=== PATIENT | female | born 1990 | race Caucasian/White ===

== ENCOUNTER 2016-12-16 08:36 | Emergency (ER) | payer OTHER ==
[2016-12-16] MEDS ORDERED: SODIUM CHLORIDE 0.9% 1,000 ML IV STA (09:08)
--- NOTE | 2016-12-16 09:11 | ED ---
Female Urogenital HPI - General Chief complaint: Vaginal Bleeding Stated complaint: Vag Bleeding Preg LMP 10/11/16 Time Seen by Provider: 12/16/16 09:01 Source: patient, RN notes reviewed Mode of arrival: ambulatory Limitations: no limitations - History of Present Illness Initial comments: 26-year-old female who is a presents to the emergency department with a chief complaint of vaginal spotting in . Patient states that she starts develops vaginal spotting last night that was only on the toilet paper. Patient states that she last night she did not soak a pad. However she did continue to bleed. Patient states she woke up this morning continued and so she became concerned. Patient states that she called her ASSISTANT STORE DIRECTOR and he sent her here. Patient states she has not had an ultrasound yet in this . Patient denies any pain or any nausea or vomiting. Patient denies any changes in bowel or bladder habits. Patient states that she was concerned due to the bleeding. Patient states that she is not currently having any other symptoms at this time. Patient denies any recent fever, chills, shortness of breath, chest pain, back pain, abdominal pain, nausea vomiting, numbness or tingling, dysuria or hematuria, constipation or diarrhea, headaches or visual changes, or any other current symptoms. - Related Data Home Medications Medication Instructions Recorded Confirmed Pnv with Ca,No.72/Iron/FA [Pnv 1 tab PO HS 12/16/16 12/16/16 Plus Multivit Tab] Allergies Allergy/AdvReac Type Severity Reaction Status Date / Time No Known Allergies Allergy Verified 12/16/16 09:39 Review of Systems ROS Statement: Those systems with pertinent positive or pertinent negative responses have been documented in the HPI. ROS Other: All systems not noted in ROS Statement are negative. Past Medical History Past Medical History: Asthma History of Any Multi-Drug Resistant Organisms: None Reported Past Surgical History: Adenoidectomy, Appendectomy, Cholecystectomy, Ear Surgery , Tonsillectomy Additional Past Surgical History / Comment(s): ear tubes Past Psychological History: No Psychological Hx Reported Smoking Status: Never smoker Past Alcohol Use History: Rare Past Drug Use History: None Reported General Exam - General Exam Comments Initial Comments: General: The patient is awake and alert, in no distress, and does not appear acutely ill. Eye: Pupils are equal, round and reactive to light, extra-ocular movements are intact; there is normal conjunctiva bilaterally. No signs of icterus. Ears, nose, mouth and throat: There are moist mucous membranes. Neck: The neck is supple, there is no tenderness. Cardiovascular: There is a regular rate and rhythm. No murmur, rub or gallop is appreciated. Respiratory: Lungs are clear to auscultation, respirations are non-labored, breath sounds are equal. No wheezes, stridor, rales, or rhonchi. Gastrointestinal: Soft, non-distended, non-tender abdomen without masses or organomegaly noted. There is no rebound or guarding present. No CVA tenderness. Bowel sounds are unremarkable. Back: There is no tenderness to palpation in the midline. There is no obvious deformity. No rashes noted. Musculoskeletal: Normal ROM, no tenderness, There is no pedal edema. There is no calf tenderness or swelling. Sensation intact. Pulses equal bilaterally 2+. Neurological: CN II-XII intact, There are no obvious motor or sensory deficits. Coordination appears grossly intact. Speech is normal. Skin: Skin is warm and dry and no rashes or lesions are noted. Psychiatric: Cooperative, appropriate mood & affect, normal judgment. Limitations: no limitations External exam: Present: normal external exam Speculum exam: Present: vaginal bleeding (minimal) By manual exam: Present: normal by manual exam Course Vital Signs 12/16/16 08:53 Temperature 98.4 F Pulse Rate 92 Respiratory 20 Rate Blood Pressure 115/55 O2 Sat by Pulse 99 Oximetry Medical Decision Making - Medical Decision Making 26-year-old female presents emergency Department with a chief complaint of vaginal bleeding in . This time patient's ultrasound does show suspicion for demise. This time patient was informed of this. We discussed superglue her prescription for repeat hCG and to follow-up with the OB /RAIL EXPRESS CLERK. Discussed return parameters for the patient. Patient stated above. She will be discharged home at this time. - Lab Data Result diagrams: 12/16/16 09:10 12/16/16 09:10 Lab Results 12/16/16 12/16/16 12/16/16 Range/Units 09:10 09:10 09:10 WBC 9.7 (3.8-10.6) k/uL RBC 4.56 (3.80-5.40) m/uL Hgb 14.7 (11.4-16.0) gm/dL Hct 44.0 (34.0-46.0) % MCV 96.7 (80.0-100.0) fL MCH 32.3 (25.0-35.0) pg MCHC 33.4 (31.0-37.0) g/dL RDW 12.5 (11.5-15.5) % Plt Count 209 (150-450) k/uL Neutrophils % 81 % Lymphocytes % 10 % Monocytes % 5 % Eosinophils % 2 % Basophils % 1 % Neutrophils # 7.8 H (1.3-7.7) k/uL Lymphocytes # 0.9 L (1.0-4.8) k/uL Monocytes # 0.5 (0-1.0) k/uL Eosinophils # 0.2 (0-0.7) k/uL Basophils # 0.1 (0-0.2) k/uL Sodium 146 H (137-145) mmol/L Potassium 3.9 (3.5-5.1) mmol/L Chloride 109 H (98-107) mmol/L Carbon Dioxide 25 (22-30) mmol/L Anion Gap 12 mmol/L BUN 5 L (7-17) mg/dL Creatinine 0.62 (0.52-1.04) mg/dL Est GFR (MDRD) Af Amer >60 (>60 ml/min/1.73 sqM) Est GFR (MDRD) Non-Af >60 (>60 ml/min/1.73 sqM) Glucose 98 (74-99) mg/dL Calcium 9.7 (8.4-10.2) mg/dL Total Bilirubin 0.7 (0.2-1.3) mg/dL AST 22 (14-36) U/L ALT 36 (9-52) U/L Alkaline Phosphatase 87 (38-126) U/L Total Protein 8.0 (6.3-8.2) g/dL Albumin 4.9 (3.5-5.0) g/dL HCG, Quant 2961.9 mIU/mL Urine Color Urine Appearance (Clear) Urine pH (5.0-8.0) Ur Specific [place] (1.001-1.035) Urine Protein (Negative) Urine Glucose (UA) (Negative) Urine Ketones (Negative) Urine Blood (Negative) Urine Nitrate (Negative) Urine Bilirubin (Negative) Urine Urobilinogen (<2.0) mg/dL Ur Leukocyte Esterase (Negative) Amorphous Sediment (None) /hpf Blood Type O Positive Blood Type Recheck No 12/16/16 Range/Units 09:10 WBC (3.8-10.6) k/uL RBC (3.80-5.40) m/uL Hgb (11.4-16.0) gm/dL Hct (34.0-46.0) % MCV (80.0-100.0) fL MCH (25.0-35.0) pg MCHC (31.0-37.0) g/dL RDW (11.5-15.5) % Plt Count (150-450) k/uL Neutrophils % % Lymphocytes % % Monocytes % % Eosinophils % % Basophils % % Neutrophils # (1.3-7.7) k/uL Lymphocytes # (1.0-4.8) k/uL Monocytes # (0-1.0) k/uL Eosinophils # (0-0.7) k/uL Basophils # (0-0.2) k/uL Sodium (137-145) mmol/L Potassium (3.5-5.1) mmol/L Chloride (98-107) mmol/L Carbon Dioxide (22-30) mmol/L Anion Gap mmol/L BUN (7-17) mg/dL Creatinine (0.52-1.04) mg/dL Est GFR (MDRD) Af Amer (>60 ml/min/1.73 sqM) Est GFR (MDRD) Non-Af (>60 ml/min/1.73 sqM) Glucose (74-99) mg/dL Calcium (8.4-10.2) mg/dL Total Bilirubin (0.2-1.3) mg/dL AST (14-36) U/L ALT (9-52) U/L Alkaline Phosphatase (38-126) U/L Total Protein (6.3-8.2) g/dL Albumin (3.5-5.0) g/dL HCG, Quant mIU/mL Urine Color Yellow Urine Appearance Turbid H (Clear) Urine pH 7.5 (5.0-8.0) Ur Specific [place] 1.014 (1.001-1.035) Urine Protein Trace H (Negative) Urine Glucose (UA) Negative (Negative) Urine Ketones Negative (Negative) Urine Blood Moderate H (Negative) Urine Nitrate Negative (Negative) Urine Bilirubin Negative (Negative) Urine Urobilinogen <2.0 (<2.0) mg/dL Ur Leukocyte Esterase Negative (Negative) Amorphous Sediment Moderate H (None) /hpf Blood Type Blood Type Recheck - Radiology Data Radiology results: report reviewed, image reviewed Disposition Clinical Impression: demise, Threatened Disposition: HOME SELF-CARE Condition: Stable Instructions: Threatened Miscarriage (ED) Additional Instructions: Please use medication as discussed. Please follow up with family doctor if symptoms have not improved over the next two days. Please return to the emergency room if your symptoms increase or worsen or for any other concerns. Referrals: Reddy Nuno MD [STAFF PHYSICIAN] - 1-2 days Time of Disposition: 11:10
[2016-12-16 09:32] LABS: Basophils # (A) 0.1 k/uL (0-0.2); Basophils % (A) 1 %; CH 32.5; CHCM 33.8; Eosinophils # (A) 0.2 k/uL (0-0.7); Eosinophils % (A) 2 %; HDW 2.36; HGB 14.7 gm/dL (11.4-16.0); Luc # (Auto) 0.11; Luc % (Auto) 1; Lymphocytes # (A) 0.9 k/uL (1.0-4.8); Lymphocytes % (A) 10 %; MCH 32.3 pg (25.0-35.0); MCHC 33.4 g/dL (31.0-37.0); MCV 96.7 fL (80.0-100.0); Mean Platelet Volume 7.6; Monocytes # (A) 0.5 k/uL (0-1.0); Monocytes % (A) 5 %; Neutrophils # (A) 7.8 k/uL (1.3-7.7); Neutrophils % (A) 81 %; RBC 4.56 m/uL (3.80-5.40); RDW 12.5 % (11.5-15.5); WBC 9.7 k/uL (3.8-10.6); WBC (Perox) 9.79
[2016-12-16 09:37] LABS: Amorphous Sediment,Urine Moderate /hpf; Appearance,Urine Turbid (Clear); Bilirubin,Urine Negative (Negative); Glucose,Urine (UA) Negative (Negative); Ketones,Urine Negative (Negative); Leukocyte Esterase,Urine Negative (Negative); Nitrite,Urine Negative (Negative); PH, Urine 7.5 (5.0-8.0); Particle Count 33518; Protein,Urine Trace (Negative); Specific Gravity,Urine 1.014 (1.001-1.035); UA Billing (MACRO vs. MICRO) MICRO; Urobilinogen,Urine <2.0 mg/dL (<2.0)
[2016-12-16 09:46] LABS: ALT 36 U/L (9-52); AST 22 U/L (14-36); Alkaline Phosphatase 87 U/L (38-126); Anion Gap 12 mmol/L; Blood Urea Nitrogen 5 mg/dL (7-17); Calcium 9.7 mg/dL (8.4-10.2); Carbon Dioxide 25 mmol/L (22-30); Chloride 109 mmol/L (98-107); Glucose 98 mg/dL (74-99); Non-African American GFR(MDRD) >60 (>60 ml/min/1.73 sqM); Potassium 3.9 mmol/L (3.5-5.1); Sodium 146 mmol/L (137-145); Total Bilirubin 0.7 mg/dL (0.2-1.3)
[2016-12-16 10:01] LABS: HCG,Quantitative Serum 2961.9 mIU/mL
--- NOTE | 2016-12-16 11:05 | US ---
EXAMINATION TYPE: US OB <= 14 wk fetus DATE OF EXAM: 12/16/2016 10:24 AM COMPARISON: No previous CLINICAL HISTORY: Pain. Spotting x 2 days, 2, para 1 EXAM PERFORMED: Transvaginal (TV) and Transabdominal (TA) endovaginal scanning performed for better evaluation of the fetus EXAM MEASUREMENTS: GESTATIONAL AGE / DATING Physician Established: Not established yet Dates by LMP: (9 weeks/3 days) EDC: 07/18/2017 Dates by First Scan: No previous Dates by Current Scan for: (7 weeks/0 days) EDC: 08/04/2017 MATERNAL ANATOMY Uterus: 7.1 X 4.0 x 4.7cm Right Ovary: 2.4 x 1.5 x 1.7cm Left Ovary: 1.5 x 0.9 x 1.3cm Post CDS / Adnexa: small amount of free fluid in posterior cul-de-sac Presence of free fluid: yes Presence of corpus luteal cyst: not seen at this time Presence of subchorionic bleed: no GESTATION / SURVEY CRL: 1.0cm (7 weeks/0 days) Yolk Sac (normal less than 6mm): not seen at this time Heart Rate: no heart tones seen at this time IUP: Demise Date of LMP: 10/11/2016 Beta HcG (if available): 2961.9 TECHNOLOGIST IMPRESSION: no heart tones seen at this time, pole measuring 7 weeks 0 days with an estimated delivery date of 08/04/2017 Lack of heart tones, no color flow noted at the level of the fetus on color Doppler. IMPRESSION: Findings suspicious for demise. Follow-up as indicated.
[2016-12-16 11:21] VITALS: BP 117/84; PULSE 103; RESP 16; TEMP 98.2
[2016-12-17 11:46] LABS: Chlamydia/GC Source Vaginal
== END 2016-12-16 11:26 | disposition home or self-care (01) ==
LOC: EC 08:36
DX: O02.1 Missed abortion (principal); Z3A.01 Less than 8 weeks gestation of pregnancy
CPT/HCPCS: 36415; 76801; 76817; 80053; 81001; 84702; 85025; 86900; 86901; 87070; 87086; 87205; 87491; 87591; 87808; 96360; 96361; 99284

== ENCOUNTER → 2016-12-19 | Outpatient (CLI) | payer OTHER | END | disposition home or self-care (01) | LOC: LABWHC1 16:45 | PROVIDERS: ATTEND Obstetrics & Gynecology | DX: O03.9 Complete or unspecified spontaneous abortion without complication (principal); Z3A.00 Weeks of gestation of pregnancy not specified | CPT/HCPCS: 36415; 84702 ==

== ENCOUNTER → 2017-02-04 | Outpatient (CLI) | payer OTHER | LOC: LABWHC1 16:10 | PROVIDERS: ATTEND Obstetrics & Gynecology | DX: Z34.90 Encounter for supervision of normal pregnancy, unspecified, unspecified trimester (principal); Z3A.00 Weeks of gestation of pregnancy not specified | CPT/HCPCS: 36415; 84702 ==

== ENCOUNTER → 2017-03-03 | Outpatient (CLI) | payer OTHER ==
[2017-03-03 11:00] LABS: CHCM 34.3; HCT 38.3 % (34.0-46.0); MCH 32.8 pg (25.0-35.0); MCV 96.6 fL (80.0-100.0); Mean Platelet Volume 6.6; RBC 3.97 m/uL (3.80-5.40); WBC 7.8 k/uL (3.8-10.6)
[2017-03-03 11:24] LABS: Glucose 111 mg/dL (74-99); Non-African American GFR(MDRD) >60 (>60 ml/min/1.73 sqM)
[2017-03-03 11:51] LABS: Hepatitis B Surface Ag Index 0.06
[2017-03-04 07:23] LABS: HIV-1/HIV-2 Ab Screen NONREAC (NON REAC)
== END | disposition home or self-care (01) ==
LOC: LABWHC1 10:28
PROVIDERS: ATTEND Obstetrics & Gynecology
DX: Z34.90 Encounter for supervision of normal pregnancy, unspecified, unspecified trimester (principal)
CPT/HCPCS: 36415; 82565; 82947; 85027; 86762; 86780; 86850; 86900; 86901; 87340; 87389

== ENCOUNTER → 2017-05-05 | Outpatient (CLI) | payer OTHER ==
--- NOTE | 2017-05-05 11:14 | USB ---
Reason for exam: clinical finding. History: Family history of breast cancer in mother at age 25 and breast cancer in grandmother. Indicated problem(s): palpable abnormality in both breasts. Physical Findings: Nurse Summary: BB sized nodules 10 o'clock right breast and at 1 o'clock left breast (nurse jl). US Breast BILAT Right breast ultrasound includes all four quadrants, the retroareolar region and axilla. Finding demonstrate no cystic or solid lesion seen. Left breast ultrasound includes all four quadrants, the retroareolar region and axilla. Finding demonstrate no cystic or solid lesion seen. Dense tissue at BB's 10 o'clock in the right breast, and 1 o'clock in the left breast. Dense thickened trabecular tissues. These results were verbally communicated with the patient and result sheet given to the patient on 05/05/17. ASSESSMENT: Benign, BI-RAD 2 RECOMMENDATION: 1. Generally, screening can begin 10 years prior to the age that a first degree relative had breast cancer. 2. Manage patient on a clinical basis with regard to suspicious palpable areas. 3. Consider BRCA testing given patients family history. 4. Alternating screening MRI may be indicated if lifetime risk is greater than 20%. MTDD
== END | disposition home or self-care (01) ==
LOC: RADUSWWP 09:41
PROVIDERS: ATTEND Obstetrics & Gynecology
DX: N63 Unspecified lump in breast (principal)

== ENCOUNTER → 2017-06-13 | Outpatient (CLI) | payer OTHER ==
--- NOTE | 2017-06-13 10:51 | US ---
EXAMINATION TYPE: US venous doppler duplex LE RT DATE OF EXAM: 06/13/2017 10:38 AM COMPARISON: NONE CLINICAL HISTORY: I82.409 DVT. Patient with right leg cramping, no swelling, no h/o dvt SIDE PERFORMED: Right TECHNIQUE: The lower extremity deep venous system is examined utilizing real time linear array sonog kassi with graded compression, doppler sonography and color-flow sonography. VESSELS IMAGED: External Iliac Vein (EIV) Common Femoral Vein Deep Femoral Vein Greater Saphenous Vein * Femoral Vein = duplicate vein seen at mid level Popliteal Vein Small Saphenous Vein * Proximal Calf Veins (* superficial vessels) *tech impression relayed to office @1043 Right Leg: Appears negative for DVT Grayscale, color doppler, spectral doppler imaging performed of the deep veins of the lower extremiti es. There is normal flow, compressibility, vascular waveforms. IMPRESSION: No sonographic evidence of deep venous thrombosis within the right lower extremity.
== END | disposition home or self-care (01) ==
LOC: RADUSWWP 10:11
PROVIDERS: ATTEND Obstetrics & Gynecology
DX: I82.409 Acute embolism and thrombosis of unspecified deep veins of unspecified lower extremity (principal)

== ENCOUNTER → 2017-07-10 | Outpatient (CLI) | payer OTHER ==
[2017-07-10 14:49] LABS: CH 33.9; CHCM 35.1; HCT 31.6 % (34.0-46.0); HDW 2.74; MCH 33.8 pg (25.0-35.0); MCHC 34.8 g/dL (31.0-37.0); MCV 97.2 fL (80.0-100.0); Mean Platelet Volume 7.4; RBC 3.25 m/uL (3.80-5.40); RDW 13.4 % (11.5-15.5); WBC 12.3 k/uL (3.8-10.6)
== END | disposition home or self-care (01) ==
LOC: LABWHC1 13:22
PROVIDERS: ATTEND Obstetrics & Gynecology
DX: Z34.82 Encounter for supervision of other normal pregnancy, second trimester (principal)
CPT/HCPCS: 36415; 82950; 85027

== ENCOUNTER → 2017-07-17 | Outpatient (CLI) | payer OTHER ==
[2017-07-17 13:11] LABS: Glucose 3 Hour, Gest 84 mg/dL
== END | disposition home or self-care (01) ==
LOC: LABWHC1 08:35
PROVIDERS: ATTEND Obstetrics & Gynecology
DX: O99.810 Abnormal glucose complicating pregnancy (principal); Z3A.00 Weeks of gestation of pregnancy not specified
CPT/HCPCS: 36415; 82951; 82952

== ENCOUNTER 2017-08-31 20:38 | Outpatient (CLI) | payer OTHER ==
[2017-08-31 21:14] LABS: Appearance,Urine Cloudy (Clear); Bilirubin,Urine Negative (Negative); Glucose,Urine (UA) Negative (Negative); Ketones,Urine Negative (Negative); Leukocyte Esterase,Urine Moderate (Negative); Mucus,Urine Rare /hpf; Nitrite,Urine Negative (Negative); Particle Count 3839; Protein,Urine Negative (Negative); RBC,Urine 1 /hpf (0-5); Specific Gravity,Urine 1.009 (1.001-1.035); Squamous Epithelial Cell,Urine 4 /hpf (0-4); UA Billing (MACRO vs. MICRO) MICRO; Urobilinogen,Urine <2.0 mg/dL (<2.0); WBC,Urine 12 /hpf (0-5)
[2017-08-31 21:52] VITALS: BP 139/74; PULSE 85; RESP 16; TEMP 98.4
--- NOTE | 2017-08-31 22:50 | P.MSEPDOC ---
Presenting Problems - Arrival Data Date of Arrival on Unit: 08/31/17 Time of Arrival on Unit: 20:38 Mode of Transport: Wheelchair - Complaint OB-Reason for Admission/Chief Complaint: Observation/Evaluation Comment: pt c/o contractions and not feeling well the day prior Medical History - Information : 3 Para: 1 Term: 1 : 0 Abortions: Spontaneous or Elective: 1 Number of Living Children: 1 - Gestational Age Gestational Age by RIN (wks/days): 36 Weeks and 5 Days Review of Systems - Review of Systems Constitutional: No problems Breast: No problems ENT: No problems Cardiovascular: No problems Respiratory: No problems Gastrointestinal: No problems Genitourinary: No problems Musculoskeletal: No problems Neurological: No problems Skin: No problems Vital Signs - Temperature Temperature: 98.4 F Temperature Source: Temporal Artery Scan - Pulse Right Pulse Rate: 85 Pulse Assessment Method: Automatic Cuff - Respirations Respiratory Rate: 16 Oxygen Delivery Method: Room Air O2 Sat by Pulse Oximetry: 99 - Blood Pressure Right Arm Blood Pressure: 139/74 Blood Pressure Mean: 95 Blood Pressure Source: Automatic Cuff Medical Screen Scoring (Pre) - Cervical Exam Dilation: 1-3 cm = 1 Effacement: More than 50% = 2 Membranes: Intact - Uterine Contractions Frequency: > or = 36 weeks =2 Duration: > 40 seconds = 2 - Maternal Vital Signs Maternal Temperature: N/A Maternal Blood Pressure: N/A Signs of Preeclampsia: N/A Maternal Respirations: N/A - Pain Assessment Pain Location and Character: Back, Abdomen Pain Scale Used: Numeric (1 - 10) Pain Intensity: 4 Pain Management Goal: 5 Pain Description: *Acute, Cramping Pain Frequency: Intermittent Pain Behavior: None Exhibited Pain Aggravating Factors: Contractions - Maternal Trauma Maternal Trauma: N/A - Assessment Baseline FHR: 145 Heart Rate - NICHD Category: Category I (Normal) = 0 NST: Reactive - Total Score Total Score (Pre): 7 - Level of Risk Level of Risk: Medium (6-9) Physician Notification (Pre) - Physician Notified Physician Notified Date: 08/31/17 Physician Notified Time: 21:00 Physician/Practitioner Notifed:: Dr Joe New Order Received: Yes - Notification Comment Comment: send u/a and recheck cervix in an hour Physician Notification (Post) - Physician Notified Physician Notified Date: 08/31/17 Physician Notified Time: 21:49 Physician/Practitioner Notified:: Dr Joe New Order Received: Yes - Notification Comment Comment: d/c pt home Disposition - Disposition OB Disposition: Discharge to home Discharge Date: 08/31/17 Discharge Time: 22:00 I agree with the RN Medical Screening Exam: Yes Risk & Benefit of care provided described in d/c instruction: Yes Diagnosis: FALSE LABOR BEFORE 37 COMPLETED WEEKS OF GEST, THIRD TRI
== END 2017-08-31 22:00 | disposition home or self-care (01) ==
LOC: FBPOP 20:38
PROVIDERS: ATTEND Obstetrics & Gynecology
DX: O47.03 False labor before 37 completed weeks of gestation, third trimester (principal); Z3A.36 36 weeks gestation of pregnancy
CPT/HCPCS: 59025; 81001; G0463; 99213

== ENCOUNTER 2017-09-06 00:28 | Inpatient (IN) | payer OTHER ==
[2017-09-06] MEDS ORDERED: LACTATED RINGERS 1,000 ML IV ONE (00:57)
[2017-09-06] MEDS ORDERED: ceFAZolin IN SWFI 2 GM/20 ML SYRINGE IVP ONE (00:57)
[2017-09-06] MEDS ORDERED: CITRIC ACID-SODIUM CITRATE 15 ML CUP PO ONE (00:57)
[2017-09-06 01:11] VITALS: BMI 26.2
[2017-09-06 01:11] LABS: Basophils # (A) 0.1 k/uL (0-0.2); Basophils % (A) 0 %; CH 31.5; CHCM 33.7; Eosinophils # (A) 0.2 k/uL (0-0.7); Eosinophils % (A) 1 %; HDW 2.99; HGB 11.7 gm/dL (11.4-16.0); Luc # (Auto) 0.37; Luc % (Auto) 2; Lymphocytes # (A) 2.3 k/uL (1.0-4.8); Lymphocytes % (A) 14 %; MCH 31.5 pg (25.0-35.0); MCHC 33.5 g/dL (31.0-37.0); MCV 94.1 fL (80.0-100.0); Mean Platelet Volume 7.8; Monocytes # (A) 1.1 k/uL (0-1.0); Monocytes % (A) 6 %; Neutrophils % (A) 76 %; RBC 3.72 m/uL (3.80-5.40); RDW 13.8 % (11.5-15.5); WBC (Perox) 17.77
[2017-09-06] MEDS ORDERED: PHENYLEPHRINE-0.9% NACL SYG 1 MG/10 ML SYRINGE ONE (01:46)
[2017-09-06] MEDS ORDERED: ONDANSETRON 4 MG/2 ML VIAL ONE (01:46)
[2017-09-06] MEDS ORDERED: MORPHINE SULFATE (PF) 0.3 MG/0.3 ML SYR ONE (01:46)
[2017-09-06] MEDS ORDERED: NALBUPHINE 10 MG/ML AMPUL ONE (01:46)
[2017-09-06] MEDS ORDERED: KETOROLAC 30 MG/ML 1 ML VIAL ONE (01:46)
[2017-09-06] MEDS ORDERED: OXYTOCIN 10 UNIT/ML 1 ML VIAL ONE (01:46)
[2017-09-06] MEDS ORDERED: NALOXONE 0.4 MG/ML 1 ML VIAL IV PRN ×2 (02:23→02:45)
[2017-09-06] MEDS ORDERED: ONDANSETRON 4 MG/2 ML VIAL IVP PRN ×2 (02:23→02:45)
[2017-09-06] MEDS ORDERED: diphenhydrAMINE 50 MG/ML 1 ML VIAL IVP PRN (02:23)
[2017-09-06] MEDS ORDERED: MORPHINE SULFATE 10 MG/ML SYRINGE IVP PRN (02:23)
[2017-09-06] MEDS ORDERED: SIMETHICONE 80 MG CHEWABLE PO PRN (02:45)
[2017-09-06] MEDS ORDERED: Acetaminophen-Codeine 300-30mg TAB PO PRN (02:45)
[2017-09-06] MEDS ORDERED: diphenhydrAMINE 25 MG CAP PO PRN (02:45)
[2017-09-06] MEDS ORDERED: ACETAMINOPHEN TAB 325 MG TAB PO PRN (02:45)
[2017-09-06] MEDS ORDERED: ZOLPIDEM 5 MG TAB PO PRN (02:45)
[2017-09-06] MEDS ORDERED: METOCLOPRAMIDE 5 MG/ML 2 ML VIAL IVP PRN (02:45)
--- NOTE | 2017-09-06 02:53 | P.HPOB ---
History of Present Illness H&P Date: 09/06/17 Chief Complaint: leaking of fluid, previous this patient is a pleasant 27-year-old 3 para 1 female estimated date of confinement 09/23/2017 estimated gestational age 37-4/7 weeks who presents to labor and delivery with complaints of gush of fluid about quarter to midnight. Patient's care is per Dr. Cruz. patient has a history of her first baby having Down syndrome. Genetic testing via maternity T 21 was done which was normal as well as a level III ultrasound. Patient had a previous section for her first baby secondary to breech and has requested repeat. care appears to be otherwise uncomplicated. Review of Systems Constitutional: Denies chills, Denies fever Ears, nose, mouth and throat: Denies headache, Denies sore throat Cardiovascular: Denies chest pain, Denies shortness of breath Respiratory: Denies cough Gastrointestinal: Reports heartburn Genitourinary: Reports Menstruation: Reports amenorrhea Past Medical History Past Medical History: Asthma History of Any Multi-Drug Resistant Organisms: None Reported Past Surgical History: Adenoidectomy, Appendectomy, Cholecystectomy, Ear Surgery , Tonsillectomy Additional Past Surgical History / Comment(s): ear tubes Past Anesthesia/Blood Transfusion Reactions: No Reported Reaction Past Psychological History: No Psychological Hx Reported Smoking Status: Never smoker Past Alcohol Use History: None Reported, Rare Past Drug Use History: None Reported - Past Family History Mother Family Medical History: No Reported History Medications and Allergies Home Medications Medication Instructions Recorded Confirmed Type Pnv,Calcium 72/Iron/Folic Acid 1 tab PO HS 12/16/16 09/06/17 History [Pnv Plus Multivit Tab] Allergies Allergy/AdvReac Type Severity Reaction Status Date / Time No Known Allergies Allergy Verified 09/06/17 00:49 Exam - Vital Signs Vital signs: Vital Signs Temp Pulse Resp BP 09/06/17 00:50 99.1 F 94 15 130/60 Intake and Output 09/05/17 09/05/17 09/06/17 14:59 22:59 06:59 Other: Weight 63.049 kg Patient Weight 09/06/17 06:59 Weight 63.049 kg - OBG Physical Exam Abdomen: bowel sounds normal, no diffuse tenderness, no bruit present, no guarding noted, no hepatomegaly, no splenomegaly, no mass Vulva: both: normal Vagina: normal moisture, no discharge Cervix: vaginal exam shows gross rupture membranes 2-3 cm dilated. Uterus: enlarged Results blood work shows she is oh positive, rubella immune, hepatitis B negative, RPR nonreactive, HIV negative. Group B strep was negative. Result Diagrams: 09/06/17 01:05 Abnormal Lab Results - Last 24 Hours (Table) 09/06/17 Range/Units 01:05 WBC 17.0 H (3.8-10.6) k/uL RBC 3.72 L (3.80-5.40) m/uL Neutrophils # 13.0 H (1.3-7.7) k/uL Monocytes # 1.1 H (0-1.0) k/uL Assessment and Plan (1) Third trimester Current Visit: Yes Status: Acute Code(s): Z34.93 - ENCNTR FOR SUPRVSN OF NORMAL PREG, UNSP, THIRD TRIMESTER SNOMED Code(s): 83719600 (2) Spontaneous rupture of membranes Narrative/Plan: This is a pleasant 27-year-old 3 para 1 female 37-4/7 weeks gestation with spontaneous rupture membranes and previous section. Plan is repeat section. Patient understands this surgery and risks including risks of infection, bleeding, possible injury bowel, bladder, vessels, and/or other organs. All the patient's questions are answered and a written consent is obtained. Current Visit: Yes Status: Acute Code(s): NPM8461 - SNOMED Code(s): 589338558 (3) Previous delivery affecting Current Visit: Yes Status: Acute Code(s): O34.219 - MATERNAL CARE FOR UNSP TYPE SCAR FROM PREVIOUS DEL SNOMED Code(s): 906925494
--- NOTE | 2017-09-06 03:00 | P.OP ---
Date of Procedure: 09/06/17 Preoperative Diagnosis: #1:37-4/7 weeks . #2: Spontaneous rupture membranes. #3: Previous section desires repeat Postoperative Diagnosis: same Procedure(s) Performed: Repeat low transverse section. Anesthesia: spinal Surgeon: Reddy Nuno Grain Processor #1: Alejandra Rosa Estimated Blood Loss (ml): 600 Pathology: other (placenta) Condition: stable Disposition: floor Indications for Procedure: Please see dictated H&P for intimate details of this patient's admission. In brief summary this is a pleasant 27-year-old 3 para 1 female 37-4/7 weeks gestation presented with spontaneous rupture membranes and previous section. Patient has requested repeat section. She does understand the surgery and risks including risks of infection, bleeding, possible injury bowel, bladder, vessels, and other organs. She understands risks DVT and pulmonary embolism. All the patient's questions are answered and a written consent is obtained. Operative Findings: This was a vigorous viable male infant Apgars were 8 and 9 delivery time was 0210 hours. Nuchal cord 1. Description of Procedure: This patient is taken to the operating room where she sat up and spinal anesthetic is administered without incident. Mcleod catheter had previously been placed to straight drain. With an adequate level of anesthesia, patient has abdominal prep and drape. Scalpels and taken the previous Pfannenstiel skin incision is incised. A second scalpel is taken down the fascia and the fascia scored with the scalpel. Fascial incision extended bilaterally using the Ross scissors. Fascia is then taken sharply off the rectus muscles. Rectus muscles are the peritoneum identified and entered sharply. Peritoneal incision extended superior and inferior without difficulty. Bladder blade is then placed. Bladder peritoneum was taken sharply off the lower uterine segment. Scalpels and taken a low transverse uterine incision is then made. Using a hemostat I into the uterine cavity is loss of clear fluid. This incision is then extended bluntly. 's head is guided through the incision and with fundal pressure the head is delivered. Mouth and nares are bulb suctioned. There is a nuchal cord which is reduced. We then have deliver the anterior posterior shoulder and rest this 's body. This is a vigorous viable male and Apgars are 8 and 9 delivery time is 0210 hours. After delivery of the infant the umbilical cord is doubly clamped and cut and appears to be trivascular. Placenta is manually extracted intact. Uterus is externalized and the uterine incision demarcated with Mejía clamps and closed using 0 Vicryl running fashion in 2 layers. Bladder peritoneum was then reapproximated using a 3-0 Vicryl. Excess fluid is removed from the abdomen and pelvis. Uterus tubes and ovaries appear normal for term gestation. Uterus placed back into the abdomen. Parietal peritoneum was then closed using 0 Vicryl running fashion. Fascial incision then closed using 0 PDS. Skin is then reapproximated using aung. Excellent hemostasis is noted. There are no complications. Counts are correct 3.
[2017-09-06] MEDS: diphenhydrAMINE 50 MG/ML 1 ML VIAL IVP PRN ×2 (08:03→15:23)
[2017-09-06] MEDS: KETOROLAC 30 MG/ML 1 ML VIAL IVP PRN ×3 (08:04→23:55)
[2017-09-06] MEDS: LACTATED RINGERS 1,000 ML IV SCH ×3 (09:02→19:18)
[2017-09-06] MEDS: SENNOSIDES-DOCUSATE SODIUM 1 EACH TAB PO SCH ×2 (09:03→20:35)
[2017-09-06] MEDS: Acetaminophen-Codeine 300-30mg TAB PO PRN (20:00)
[2017-09-07] MEDS: LACTATED RINGERS 1,000 ML IV SCH (04:49)
--- NOTE | 2017-09-07 06:52 | P.PN ---
Progress Note - Text Progress Note Date: 09/07/17 Ms. Madsen is a 27-year-old female postop day #1 status post with spinal anesthesia and intrathecal Duramorph. The patient has an improving pruritus and she is able to ambulate with no residual paresthesia or weakness in the lower extremities.
[2017-09-07 07:21] LABS: Basophils % (A) 0 %; CH 32.5; CHCM 33.6; Eosinophils # (A) 0.2 k/uL (0-0.7); Eosinophils % (A) 1 %; HCT 32.7 % (34.0-46.0); HDW 3.03; HGB 10.6 gm/dL (11.4-16.0); Luc # (Auto) 0.22; Luc % (Auto) 1; Lymphocytes # (A) 1.3 k/uL (1.0-4.8); Lymphocytes % (A) 8 %; MCH 31.7 pg (25.0-35.0); MCHC 32.5 g/dL (31.0-37.0); MCV 97.6 fL (80.0-100.0); Mean Platelet Volume 7.4; Monocytes # (A) 0.9 k/uL (0-1.0); Monocytes % (A) 6 %; Neutrophils # (A) 12.9 k/uL (1.3-7.7); Neutrophils % (A) 84 %; RBC 3.35 m/uL (3.80-5.40); RDW 13.1 % (11.5-15.5); WBC 15.5 k/uL (3.8-10.6); WBC (Perox) 15.54
--- NOTE | 2017-09-07 08:09 | P.PNOBGPC ---
Subjective - Subjective Patient reports: Reports appetite normal, Reports voiding normally, Reports pain well controlled, Reports ambulating normally : doing well Objective - Vital Signs Latest vital signs: Vital Signs Temp Pulse Resp BP Pulse Ox 09/07/17 00:00 98.6 F 76 16 119/75 100 09/06/17 20:00 98.6 F 80 16 134/69 100 09/06/17 16:00 98.3 F 81 16 121/67 09/06/17 12:00 98.3 F 68 16 122/73 Intake and Output 09/06/17 09/07/17 09/07/17 22:59 06:59 14:59 Output Total 200 900 Balance -200 -900 Output: Urine 200 900 Other: Voiding Method Toilet # Voids 1 1 - Exam Lungs: bilateral: normal Chest: Normal S1, Normal S2 Extremities: Present: normal Abdomen: Present: normal appearance, soft. Absent: distention, tenderness Incision: Present: normal, dry, intact Uterus: Present: normal, firm - Labs Labs: Abnormal Lab Results - Last 24 Hours (Table) 09/07/17 Range/Units 07:06 WBC 15.5 H (3.8-10.6) k/uL RBC 3.35 L (3.80-5.40) m/uL Hgb 10.6 L (11.4-16.0) gm/dL Hct 32.7 L (34.0-46.0) % Neutrophils # 12.9 H (1.3-7.7) k/uL Assessment and Plan Assessment: Post operative day #1. Patient is resting without complaints. Vital signs are stable and she is afebrile. CBC is normal. Patient is tolerating regular diet and ambulating without difficulty. Plan today is continue routine postoperative care and most likely will be discharged home tomorrow. (1) Third trimester Current Visit: Yes Status: Acute Code(s): Z34.93 - ENCNTR FOR SUPRVSN OF NORMAL PREG, UNSP, THIRD TRIMESTER SNOMED Code(s): 62786700 (2) Spontaneous rupture of membranes Current Visit: Yes Status: Acute Code(s): HXW7980 - SNOMED Code(s): 277180176 (3) Previous delivery affecting Current Visit: Yes Status: Acute Code(s): O34.219 - MATERNAL CARE FOR UNSP TYPE SCAR FROM PREVIOUS DEL SNOMED Code(s): 439784124
[2017-09-07] MEDS: IBUPROFEN 600 MG TAB PO PRN ×3 (08:34→22:33)
[2017-09-07] MEDS: SENNOSIDES-DOCUSATE SODIUM 1 EACH TAB PO SCH ×2 (08:34→19:26)
[2017-09-07] MEDS: Acetaminophen-Codeine 300-30mg TAB PO PRN ×2 (11:36→19:26)
[2017-09-07 16:24] VITALS: RESP 16
[2017-09-08] MEDS: Acetaminophen-Codeine 300-30mg TAB PO PRN ×3 (02:08→13:20)
[2017-09-08] MEDS: IBUPROFEN 600 MG TAB PO PRN ×3 (05:52→17:01)
[2017-09-08] MEDS: SENNOSIDES-DOCUSATE SODIUM 1 EACH TAB PO SCH (08:15)
--- NOTE | 2017-09-08 09:21 | P.DS ---
Providers Date of admission: 09/06/17 00:43 Expected date of discharge: 09/08/17 Attending physician: Bogdan Cruz Primary care physician: Stated None Hospital Course: Mir is doing very well postop day 2. She is ambulating, voiding and she is tolerating her diet. She voices no complaints. Vital signs are stable and afebrile. Heart regular, lungs clear, extremities without pain. Abdomen is soft uterus is firm incision is clean dry and intact. We'll plan to remove aung today prior to discharge. She will follow up with me in 1 week. Prescription for Tylenol 3 and Motrin have been provided and all questions are answered for her prior to her discharge discharge instructions thoroughly reviewed. Patient Condition at Discharge: Good Plan - Discharge Summary New Discharge Prescriptions: No Action Pnv,Calcium 72/Iron/Folic Acid [Pnv Plus Multivit Tab] 1 tab PO HS Discharge Medication List Pnv,Calcium 72/Iron/Folic Acid [Pnv Plus Multivit Tab] 1 tab PO HS [History]
[2017-09-08 09:44] VITALS: BP 114/69; PULSE 73; TEMP 97.8
== END 2017-09-08 17:05 | disposition home or self-care (01) | DRG 540 ==
LOC: FBPOP 00:28 → 4FBP 00:43
PROVIDERS: ADMIT Obstetrics & Gynecology; ATTEND Obstetrics & Gynecology
PROC: 10D00Z1 Extraction of Products of Conception, Low, Open Approach (ICD-10-PCS; principal; 2017-09-06 01:45)
DX: O42.92 Full-term premature rupture of membranes, unspecified as to length of time between rupture and onset of labor (principal); O69.81X0 Labor and delivery complicated by cord around neck, without compression, not applicable or unspecified; Z37.0 Single live birth; O34.211 Maternal care for low transverse scar from previous cesarean delivery; Z3A.37 37 weeks gestation of pregnancy; L29.9 Pruritus, unspecified
CPT/HCPCS: 85025; 86850; 86900; 86901; 88307

== ENCOUNTER → 2018-10-15 | Outpatient (CLI) | payer OTHER ==
[2018-10-15 15:15] LABS: HCT 31.2 % (34.0-46.0); HGB 10.6 gm/dL (11.4-16.0); MCH 32.4 pg (25.0-35.0); MCHC 33.9 g/dL (31.0-37.0); MCV 95.4 fL (80.0-100.0); Mean Platelet Volume 6.5; Platelet Count 254 k/uL (150-450); RBC 3.27 m/uL (3.80-5.40); RDW 13.3 % (11.5-15.5); WBC 12.5 k/uL (3.8-10.6)
[2018-10-16 04:30] LABS: HIV 1 AB Non-Reactive (Non-Reactive); HIV AB P24 Non-Reactive (Non-Reactive); HIV P24 AG Non-Reactive (Non-Reactive)
== END | disposition home or self-care (01) ==
LOC: LABWHC1 14:32
PROVIDERS: ATTEND Obstetrics & Gynecology
DX: O26.811 Pregnancy related exhaustion and fatigue, first trimester (principal); Z3A.00 Weeks of gestation of pregnancy not specified
CPT/HCPCS: 36415; 82565; 82947; 84443; 85027; 86762; 86780; 86850; 86900; 86901; 87340; 87390

== ENCOUNTER → 2018-12-15 | Outpatient (CLI) | payer OTHER ==
[2018-12-15 14:33] LABS: MCH 31.9 pg (25.0-35.0); MCHC 32.3 g/dL (31.0-37.0); MCV 98.6 fL (80.0-100.0); Mean Platelet Volume 6.7; Platelet Count 271 k/uL (150-450); RBC 3.45 m/uL (3.80-5.40); RDW 13.5 % (11.5-15.5); WBC 14.9 k/uL (3.8-10.6)
== END | disposition home or self-care (01) ==
LOC: LABWHC1 12:58
PROVIDERS: ATTEND Obstetrics & Gynecology
DX: Z34.82 Encounter for supervision of other normal pregnancy, second trimester (principal)
CPT/HCPCS: 36415; 82950; 85027

== ENCOUNTER → 2018-12-21 | Outpatient (CLI) | payer OTHER ==
[2018-12-21 12:45] LABS: Glucose 3 Hour, Gest 131 mg/dL
== END | disposition home or self-care (01) ==
LOC: LABWHC1 07:52
PROVIDERS: ATTEND Obstetrics & Gynecology
DX: O99.810 Abnormal glucose complicating pregnancy (principal); Z3A.00 Weeks of gestation of pregnancy not specified
CPT/HCPCS: 36415; 82951; 82952

== ENCOUNTER → 2019-02-08 | Outpatient (CLI) | payer OTHER ==
--- NOTE | 2019-02-08 15:24 | US ---
EXAMINATION TYPE: US venous doppler duplex LE RT DATE OF EXAM: 02/08/2019 3:11 PM COMPARISON: NONE CLINICAL HISTORY: 28-year-old female O22.30 Deep phlebothrombosis in . Right knee pain x cou ple weeks, patient is 34 weeks SIDE PERFORMED: Right TECHNIQUE: The lower extremity deep venous system is examined utilizing real time linear array sonog kassi with graded compression, doppler sonography and color-flow sonography. FINDINGS: VESSELS IMAGED: External Iliac Vein (EIV) Common Femoral Vein Deep Femoral Vein Greater Saphenous Vein * Femoral Vein Popliteal Vein Small Saphenous Vein * Proximal Calf Veins (* superficial vessels) Right Leg: Appears negative for DVT. There is a 2.6 x 0.7 x 2.4cm cystic area seen within popliteal fossa IMPRESSION: 1. No evidence for DVT within the right lower extremity imaged from the groin to the upper calf. 2. Small Corona's cyst cyst incidentally noted measuring 2.6 cm.
== END | disposition home or self-care (01) ==
LOC: RADUSWWP 14:21
PROVIDERS: ATTEND Obstetrics & Gynecology
DX: O26.893 Other specified pregnancy related conditions, third trimester (principal); M71.21 Synovial cyst of popliteal space [Baker], right knee; Z3A.34 34 weeks gestation of pregnancy

== ENCOUNTER 2019-02-17 09:40 | Outpatient (CLI) | payer OTHER ==
[2019-02-17 10:26] VITALS: BP 131/77; PULSE 87; RESP 18; TEMP 98.2
--- NOTE | 2019-02-17 11:32 | US ---
EXAMINATION TYPE: US OB limited DATE OF EXAM: 02/17/2019 COMPARISON: NONE CLINICAL HISTORY: 35 weeks for KAREN- r/o leaking fluid. KAREN check, patient stated having prominent wet ness yesterday EXAM PERFORMED: GESTATIONAL AGE / DATING Physician Established: (35 weeks/4 days) EDC: 03/20/2019 No growth performed on today?s study per ordering physician SURVEY KAREN: 14.5 cm Normal Ultrasound evidence of premature rupture of membranes? no (Tech?if abnormal transabdominally?image transvaginally to substantiate abnormality.) PRESENTATION: Vertex HEART RATE: 165 bpm RHYTHM: Normal Limited scan was performed. IMPRESSION: Amniotic fluid index calculated at 14.5 cm
--- NOTE | 2019-02-19 16:18 | P.MSEPDOC ---
Presenting Problems - Arrival Data Date of Arrival on Unit: 02/17/19 Time of Arrival on Unit: 10:00 Mode of Transport: Portable - Complaint OB-Reason for Admission/Chief Complaint: Rule Out SROM Medical History - Information : 4 Para: 2 Term: 2 : 0 Abortions: Spontaneous or Elective: 1 Number of Living Children: 2 - Gestational Age Gestational Age by RIN (wks/days): 35 Weeks and 4 Days - History Complications: Prior Comment: prev c.s Review of Systems - Review of Systems Constitutional: No problems Breast: No problems ENT: No problems Cardiovascular: No problems Respiratory: No problems Gastrointestinal: No problems Genitourinary: No problems Musculoskeletal: No problems Neurological: No problems Skin: No problems Vital Signs - Temperature Temperature: 98.2 F Temperature Source: Oral - Pulse Right Brachial Pulse Rate: 87 - Respirations Respiratory Rate: 18 Oxygen Delivery Method: Room Air - Blood Pressure Right Arm Blood Pressure: 131/77 Blood Pressure Mean: 95 Blood Pressure Source: Automatic Cuff Medical Screen Scoring (Pre) - Cervical Exam Dilation: 1-3 cm = 1 Membranes: Intact - Uterine Contractions Frequency: N/A Duration: N/A Intensity: N/A - Maternal Vital Signs Maternal Temperature: N/A Maternal Blood Pressure: N/A Signs of Preeclampsia: N/A Maternal Respirations: N/A - Pain Assessment Pain Scale Used: Numeric (1 - 10) Pain Intensity: 0 Pain Behavior: None Exhibited - Maternal Trauma Maternal Trauma: N/A - Assessment Baseline FHR: 145 Heart Rate - NICHD Category: Category I (Normal) = 0 NST: Reactive Position: N/A Station: N/A - Total Score Total Score (Pre): 1 - Level of Risk Level of Risk: Low (0-5) Physician Notification (Pre) - Physician Notified Spoke With: melina Boyd Order Received: Yes - Notification Comment Comment: discharge home. rita 14.1 report given. Medical Screen Scoring (Post) - Cervical Exam Dilation: Exam Deferred Effacement: Exam Deferred Membranes: Intact - Uterine Contractions Frequency: N/A Duration: N/A Intensity: N/A - Maternal Vital Signs Maternal Temperature: N/A Maternal Blood Pressure: N/A Signs of Preeclampsia: N/A Maternal Respirations: N/A - Pain Assessment Pain Scale Used: Numeric (1 - 10) Pain Intensity: 0 - Maternal Trauma Maternal Trauma: N/A - Assessment Heart Rate: 150 Heart Rate - NICHD Category: Category I (Normal) = 0 NST: Reactive Position: N/A Station: N/A - Total Score Total Score (Post): 0 - Post Treatment Level of Risk Post Treatment Level of Risk: Low (0-5) Physician Notification (Post) - Physician Notified Physician Notified Date: 02/17/19 Physician Notified Time: 10:55 Spoke With: melina Boyd Order Received: Yes - Notification Comment Comment: discharge home. Disposition - Disposition OB Disposition: Discharge to home Discharge Date: 02/17/19 Discharge Time: 11:05 I agree with the RN Medical Screening Exam: Yes Risk & Benefit of care provided described in d/c instruction: Yes Diagnosis: RELATED CONDITIONS, UNSPECIFIED, THIRD TRIMESTER
== END 2019-02-17 11:09 | disposition home or self-care (01) ==
LOC: FBPOP 09:40
PROVIDERS: ATTEND Obstetrics & Gynecology
DX: O26.93 Pregnancy related conditions, unspecified, third trimester (principal); Z3A.35 35 weeks gestation of pregnancy
CPT/HCPCS: 59025; 84112; 76815; G0463; 99213

== ENCOUNTER 2019-03-07 13:01 | Inpatient (IN) | payer OTHER ==
[2019-03-07 14:15] VITALS: BMI 26.4
[2019-03-07] MEDS ORDERED: ceFAZolin IN SWFI 2 GM/20 ML SYRINGE IVP ONE (14:29)
[2019-03-07] MEDS ORDERED: CITRIC ACID-SODIUM CITRATE 15 ML CUP PO ONE (14:29)
[2019-03-07 15:00] LABS: Basophils # (A) 0.1 k/uL (0-0.2); Basophils % (A) 1 %; Eosinophils # (A) 0.1 k/uL (0-0.7); Eosinophils % (A) 1 %; HCT 39.2 % (34.0-46.0); Lymphocytes # (A) 1.6 k/uL (1.0-4.8); Lymphocytes % (A) 11 %; MCH 31.4 pg (25.0-35.0); MCHC 33.1 g/dL (31.0-37.0); MCV 94.9 fL (80.0-100.0); Mean Platelet Volume 7.2; Monocytes # (A) 0.7 k/uL (0-1.0); Monocytes % (A) 5 %; Neutrophils % (A) 82 %; Platelet Count 269 k/uL (150-450); RBC 4.13 m/uL (3.80-5.40); RDW 13.7 % (11.5-15.5); WBC 14.6 k/uL (3.8-10.6)
[2019-03-07] MEDS: LACTATED RINGERS 1,000 ML IV SCH ×3 (15:10→22:59)
--- NOTE | 2019-03-07 15:10 | P.HPOB ---
History of Present Illness H&P Date: 03/07/19 Chief Complaint: Contractions This is a 28-year-old female 4 para 2 with the estimated date of confinement of 03/20/2019, estimated gestational age of 38 and one sevenths weeks, who presents to labor and delivery with complaints of contractions that began last night and became stronger this morning. She denies any rupture of membranes. care has been with Dr. Cruz and has been essentially uncomplicated. She did have a heart murmur that she did see cardiology for and they have cleared her. labs: Blood type-O+ Antibody screen-negative Random glucose-99 Hepatitis B surface antigen-negative nonreactive Rubella-immune Syphilis antibody-negative nonreactive HIV-nonreactive Obstetrical ultrasound-normal anatomy One hour Glucola-160 Three-hour Glucola-within normal limits Group B streptococcus-negative Obstetrical history: . History of 2 sections at term. The first section was for breech and the second one was a repeat scheduled. She also has a history of 1 miscarriage. Review of Systems Constitutional: Denies chills, Denies fever Eyes: denies blurred vision, denies pain Ears, nose, mouth and throat: Denies headache, Denies sore throat Cardiovascular: Denies chest pain, Denies shortness of breath Respiratory: Denies cough Gastrointestinal: Reports abdominal pain (Contractions) Genitourinary: Reports pelvic pain, Reports Musculoskeletal: Reports low back pain Integumentary: Denies pruritus, Denies rash Neurological: Denies numbness, Denies weakness Psychiatric: Denies anxiety, Denies depression Past Medical History Past Medical History: Asthma Additional Past Medical History / Comment(s): heart murmur History of Any Multi-Drug Resistant Organisms: None Reported Past Surgical History: Adenoidectomy, Appendectomy, Section (2), Cholecystectomy, Ear Surgery, Tonsillectomy Additional Past Surgical History / Comment(s): ear tubes Past Anesthesia/Blood Transfusion Reactions: No Reported Reaction Past Psychological History: No Psychological Hx Reported Smoking Status: Never smoker Past Alcohol Use History: None Reported Past Drug Use History: None Reported - Past Family History Mother Family Medical History: No Reported History Medications and Allergies Home Medications Medication Instructions Recorded Confirmed Type Ferrous Sulfate [Iron] 325 mg PO DAILY 02/17/19 03/07/19 History Pedi Multivit No.25/Folic Acid 2 tab PO DAILY 02/17/19 03/07/19 History [Flintstones Multivit Chew Tab] Allergies Allergy/AdvReac Type Severity Reaction Status Date / Time No Known Allergies Allergy Verified 03/07/19 13:10 Exam Osteopathic Statement: *. No significant issues noted on an osteopathic structural exam other than those noted in the History and Physical/Consult. Vital Signs Temp Pulse Resp BP Pulse Ox 03/07/19 14:05 98.2 F 93 17 133/76 99 Intake and Output 03/07/19 03/07/19 03/07/19 06:59 14:59 22:59 Other: Weight 63.503 kg HEENT: Within normal limits Heart: Regular rate and rhythm Lungs: Clear to auscultation bilaterally Abdomen: Cervix: Initially was 3 cm and did make change to 5 cm/90%/-1 station while in triage. heart tones: Category 1 reactive Contractions: Every 2-5 minutes Extremities: Negative Homans Results Result Diagrams: 03/07/19 14:50 Abnormal Lab Results - Last 24 Hours (Table) 03/07/19 Range/Units 14:50 WBC 14.6 H (3.8-10.6) k/uL Neutrophils # 12.0 H (1.3-7.7) k/uL Assessment and Plan (1) 38 weeks gestation of Current Visit: Yes Status: Acute Code(s): Z3A.38 - 38 WEEKS GESTATION OF SNOMED Code(s): 01590919 (2) Previous delivery affecting Current Visit: No Status: Acute Code(s): O34.219 - MATERNAL CARE FOR UNSP TYPE SCAR FROM PREVIOUS DEL SNOMED Code(s): 873924153 Plan: Proceed with repeat section. I have discussed the risks, benefits, and alternative therapies for the above- mentioned procedure and for both sedation/anesthesia as well as necessary blood products administration, if indicated, as they pertain to this patient. The patient has indicated her understanding and acceptance of the risks and procedures discussed.
[2019-03-07] MEDS ORDERED: OXYTOCIN 10 UNIT/ML 1 ML VIAL ONE (15:15)
[2019-03-07] MEDS ORDERED: MORPHINE SULFATE (PF) 0.3 MG/0.3 ML SYR ONE (15:15)
[2019-03-07] MEDS ORDERED: KETOROLAC 30 MG/ML 1 ML VIAL ONE (15:15)
[2019-03-07] MEDS ORDERED: ONDANSETRON 4 MG/2 ML VIAL ONE (15:15)
[2019-03-07] MEDS ORDERED: NALBUPHINE 10 MG/ML (1 ML AMP) ONE (15:15)
[2019-03-07] MEDS ORDERED: MORPHINE SULFATE 2 MG/ML SYRINGE IVP PRN (15:42)
[2019-03-07] MEDS ORDERED: NALOXONE 0.4 MG/ML 1 ML VIAL IV PRN ×2 (15:42→16:33)
[2019-03-07] MEDS ORDERED: KETOROLAC 30 MG/ML 1 ML VIAL IVP PRN ×2 (15:42→16:33)
[2019-03-07] MEDS ORDERED: METOCLOPRAMIDE 5 MG/ML 2 ML VIAL IVP PRN ×2 (15:42→16:33)
[2019-03-07] MEDS ORDERED: diphenhydrAMINE 50 MG/ML 1 ML VIAL IVP PRN ×3 (15:42→16:33)
--- NOTE | 2019-03-07 16:03 | P.OP ---
Date of Procedure: 03/07/19 Preoperative Diagnosis: 1. Intrauterine at 38 and one sevenths weeks. 2. Active labor. 3. History of previous section 2. Postoperative Diagnosis: Same Procedure(s) Performed: Repeat low transverse section Anesthesia: spinal (Duramorph) Surgeon: Molly Joe Steelworker #1: Alejandra Rosa Estimated Blood Loss (ml): 600 Pathology: none sent Condition: stable Disposition: floor Indications for Procedure: This is a 28-year-old female 4 para 2 at 38 and one sevenths weeks who presents with active labor. She is noted to be dilated to 5 cm and made cervical change in triage. She denied any rupture of membranes. She is scheduled for section next week. I have discussed the risks, benefits, and alternative therapies for the above- mentioned procedure and for both sedation/anesthesia as well as necessary blood products administration, if indicated, as they pertain to this patient. The patient has indicated her understanding and acceptance of the risks and procedures discussed. Operative Findings: A viable male infant is noted in the vertex presentation with scores of 9 at 1 minute and 9 at 5 minutes and weight is 6 lbs. 8 oz. Normal uterus tubes and ovaries are noted. There were some fine omental adhesions to the anterior uterine wall. Description of Procedure: The patient is taken to the operating room where she is placed in the dorsal supine position with leftward tilt after spinal Duramorph anesthesia is given. She is prepped and draped in the normal sterile fashion. Skin was tested and found to be adequately anesthetized. A Pfannenstiel skin incision was made with a scalpel through the previous laparotomy scar. A second knife was used to carry the incision down to the underlying layer of fascia. The fascia was nicked in the midline with a scalpel and then extended laterally bilaterally with Ross scissors. The anterior lip of the fascia was grasped with 2 Arben clamps and then dissected off the underlying rectus muscle in the midline with Ross scissors. The inferior aspect of the fascial incision was grasped with 2 Arben clamps and dissected off the underlying rectus muscle and the midline with Ross scissors. Next the peritoneum layer was tented up with 2 hemostats and then entered sharply with the scalpel. The incision is extended superiorly and inferiorly with Metzenbaum scissors. Next a DeLee retractor is placed. The vesicouterine peritoneum is entered sharply with Metzenbaum scissors and extended laterally bilaterally with Metzenbaum scissors and then the bladder flap is pushed inferiorly. The lower uterine segment is incised in transverse fashion with the scalpel and then bluntly entered with a hemostat. Clear fluid is noted. The incision was then extended laterally bilaterally with 2 fingers. Next the 's head is delivered through the incision. Nose and mouth are bulb suctioned. The remainder of the infant is easily delivered and placed on mother's abdomen. Cord is clamped and cut. is taken to warmer by nursing staff. Uterine fundus is gently massaged and placenta is delivered manually. Uterus is exteriorized and cleared of all clots and debris. Uterine incision is closed with 0 Vicryl suture in a running locked fashion. A second layer of 0 Vicryl suture is used in a running fashion for hemostasis. Several interrupted stitches are placed along the left side of the incision for hemostasis. There was noted to be a small hematoma that was stable. Posterior cul-de-sac is suctioned of all clots and debris. Uterus is returned to the abd omen. Incision is noted to be hemostatic. Peritoneal layer is closed with 0 Vicryl suture in a running fashion. Muscle layer is reapproximated with 0 Vicryl suture in interrupted fashion. Fascia layer is then closed with 0 PDS suture with 2 sutures meeting in the midline and the knots buried in either side and in the midline. The subcutaneous tissue was then closed with 2-0 Vicryl suture. Skin layer was then closed with aung. All sponge and needle counts are correct. The patient is taken to recovery room in stable condition.
[2019-03-07] MEDS ORDERED: ACETAMINOPHEN TAB 325 MG TAB PO PRN (16:33)
[2019-03-07] MEDS ORDERED: ONDANSETRON 4 MG/2 ML VIAL IVP PRN (16:33)
[2019-03-07] MEDS ORDERED: diphenhydrAMINE 25 MG CAP PO PRN (16:33)
[2019-03-07] MEDS ORDERED: OXYTOCIN 20 UNITS/1000 ML NS 1,000 ML IV SCH (16:33)
[2019-03-07] MEDS ORDERED: ZOLPIDEM 5 MG TAB PO PRN (16:33)
[2019-03-07] MEDS ORDERED: LANOLIN CREAM 5 GM TUBE TOPICAL PRN (16:33)
[2019-03-07] MEDS ORDERED: diphenhydrAMINE 50 MG CAP PO PRN (16:33)
[2019-03-07] MEDS: SENNOSIDES-DOCUSATE SODIUM 1 EACH TAB PO SCH (22:59)
[2019-03-08] MEDS: IBUPROFEN 600 MG TAB PO PRN ×4 (01:52→23:37)
[2019-03-08] MEDS: LACTATED RINGERS 1,000 ML IV SCH ×2 (04:30→20:46)
[2019-03-08 07:13] LABS: Basophils # (A) 0.1 k/uL (0-0.2); Basophils % (A) 0 %; Eosinophils # (A) 0.1 k/uL (0-0.7); Eosinophils % (A) 1 %; HCT 35.3 % (34.0-46.0); HGB 11.4 gm/dL (11.4-16.0); Lymphocytes # (A) 1.2 k/uL (1.0-4.8); Lymphocytes % (A) 7 %; MCH 31.1 pg (25.0-35.0); MCHC 32.3 g/dL (31.0-37.0); MCV 96.3 fL (80.0-100.0); Mean Platelet Volume 7.5; Monocytes # (A) 0.9 k/uL (0-1.0); Monocytes % (A) 5 %; Neutrophils # (A) 14.2 k/uL (1.3-7.7); Neutrophils % (A) 86 %; Platelet Count 228 k/uL (150-450); RBC 3.66 m/uL (3.80-5.40); RDW 13.9 % (11.5-15.5); WBC 16.5 k/uL (3.8-10.6)
[2019-03-08] MEDS: SENNOSIDES-DOCUSATE SODIUM 1 EACH TAB PO SCH ×2 (08:05→19:32)
[2019-03-08] MEDS: HYDROcodone/APAP 5-325MG 1 EACH TAB PO PRN ×2 (08:05→14:34)
--- NOTE | 2019-03-08 08:35 | P.PNOBGPC ---
Subjective - Subjective Principal diagnosis: Postop day 1 Interval history: Doing very well. She is involuting, and tolerating her diet. She would like to have her diet increased to regular. She has not been able to void, has had straight catheterization 2. We'll continue to monitor this closely. Patient reports: Reports appetite normal, Reports voiding normally, Reports pain well controlled, Reports ambulating normally [place]: doing well Objective - Vital Signs Latest vital signs: Vital Signs Temp Pulse Resp BP Pulse Ox 03/08/19 06:00 15 03/08/19 04:00 98 F 77 15 113/70 03/08/19 02:00 16 03/08/19 00:00 98 F 92 15 131/69 03/07/19 22:00 15 03/07/19 20:00 98 F 80 15 130/70 98 03/07/19 18:00 98.4 F 64 17 135/62 03/07/19 17:30 65 17 116/60 03/07/19 17:00 75 17 135/65 03/07/19 16:45 68 17 117/64 03/07/19 16:30 70 16 115/60 100 03/07/19 16:15 82 16 119/59 99 03/07/19 16:00 97.8 F 86 17 142/68 99 03/07/19 14:05 98.2 F 93 17 133/76 99 Intake and Output 03/07/19 03/08/19 03/08/19 22:59 06:59 14:59 Output Total 500 1700 Balance -500 -1700 Output: Urine 300 1700 Uretheral ([facility]) 200 Emesis 200 Other: # Voids 1 # Emeses 1 - Exam Lungs: bilateral: normal Chest: Normal S1, Normal S2 Extremities: Present: normal Abdomen: Present: normal appearance, soft. Absent: distention, tenderness Incision: Present: normal, dry, intact Uterus: Present: normal, firm - Labs Labs: Abnormal Lab Results - Last 24 Hours (Table) 03/07/19 03/08/19 Range/Units 14:50 06:57 WBC 14.6 H 16.5 H (3.8-10.6) k/uL RBC 3.66 L (3.80-5.40) m/uL Neutrophils # 12.0 H 14.2 H (1.3-7.7) k/uL
--- NOTE | 2019-03-08 10:54 | P.PN ---
Progress Note - Text Progress Note Date: 03/08/19 Postoperative day 1 status post section under spinal anesthesia, and intrathecal morphine given for postoperative analgesia, patient doing well, there is no anesthesia related complications, Patient had no headache, vital signs stable , Assessment and plan= postop day 1 status post , doing well there is no anesthesia related complication.
[2019-03-08 19:22] VITALS: RESP 16
[2019-03-08] MEDS: HYDROcodone/APAP 7.5-325MG 1 EACH TAB PO PRN (19:32)
[2019-03-09] MEDS: HYDROcodone/APAP 7.5-325MG 1 EACH TAB PO PRN (02:19)
[2019-03-09] MEDS: IBUPROFEN 600 MG TAB PO PRN ×2 (05:41→10:40)
[2019-03-09 07:46] VITALS: BP 114/69; PULSE 73; TEMP 98.2
[2019-03-09] MEDS: HYDROcodone/APAP 5-325MG 1 EACH TAB PO PRN (07:55)
[2019-03-09] MEDS: SENNOSIDES-DOCUSATE SODIUM 1 EACH TAB PO SCH (07:55)
--- NOTE | 2019-03-09 08:50 | P.DS ---
Providers Date of admission: 03/07/19 14:21 Expected date of discharge: 03/09/19 Attending physician: Bogdan Cruz Primary care physician: Stated None Hospital Course: Mir is doing very well postop day 2. She is involuting, voiding, and she is tolerating her diet. She voices no complaints. Vital signs are stable and afebrile. Heart regular, lungs clear, extremities without pain. Abdomen soft nontender and her incision is clean dry and intact. We'll plan to remove aung today and apply Steri-Strips. She'll follow up with me in 1 week. All of the discharge instructions were reviewed and all questions were answered for her prior to discharge. Prescription for [place] and Motrin for into her pharmacy. Patient Condition at Discharge: Good Plan - Discharge Summary New Discharge Prescriptions: New Ibuprofen [Motrin] 600 mg PO Q6HR PRN #30 tab PRN Reason: Pain HYDROcodone/APAP 5-325MG [[place] 5-325] 1 tab PO Q4HR PRN #30 tab PRN Reason: Pain No Action Pedi Multivit No.25/Folic Acid [Flintstones Multivit Chew Tab] 2 tab PO DAILY Ferrous Sulfate [Iron] 325 mg PO DAILY Discharge Medication List Ferrous Sulfate [Iron] 325 mg PO DAILY 02/17/19 [History] Pedi Multivit No.25/Folic Acid [Flintstones Multivit Chew Tab] 2 tab PO DAILY 02/17/19 [History] HYDROcodone/APAP 5-325MG [[place] 5-325] 1 tab PO Q4HR PRN #30 tab 03/09/19 [Rx] Ibuprofen [Motrin] 600 mg PO Q6HR PRN #30 tab 03/09/19 [Rx] Follow up Appointment(s)/Referral(s): Bogdan Cruz DO [Doctor of Osteopathic Medicine] - 1 Week Activity/Diet/Wound Care/Special Instructions: No heavy lifting, limit stairs and driving, and pelvic rest. If any high temperatures, heavy bleeding, or severe pain call my office Discharge Disposition: HOME SELF-CARE
== END 2019-03-09 13:20 | disposition home or self-care (01) | DRG 788 ==
LOC: FBPOP 13:01 → 4FBP 14:21
PROVIDERS: ADMIT Obstetrics & Gynecology; ATTEND Obstetrics & Gynecology
PROC: 10D00Z1 Extraction of Products of Conception, Low, Open Approach (ICD-10-PCS; principal; 2019-03-07 15:30)
DX: O34.211 Maternal care for low transverse scar from previous cesarean delivery (principal); O75.82 Onset (spontaneous) of labor after 37 completed weeks of gestation but before 39 completed weeks gestation, with delivery by (planned) cesarean section; O99.52 Diseases of the respiratory system complicating childbirth; J45.909 Unspecified asthma, uncomplicated; N85.8 Other specified noninflammatory disorders of uterus; Z3A.38 38 weeks gestation of pregnancy; Z37.0 Single live birth; K66.0 Peritoneal adhesions (postprocedural) (postinfection); R01.1 Cardiac murmur, unspecified; Z79.899 Other long term (current) drug therapy; Z98.890 Other specified postprocedural states; Z90.49 Acquired absence of other specified parts of digestive tract
CPT/HCPCS: 85025; 86850; 86900; 86901

== ENCOUNTER → 2020-06-12 | Outpatient (CLI) | payer OTHER ==
[2020-06-12 12:14] LABS: T4, Free (Free Thyroxine) 0.96 ng/dL (0.78-2.19)
--- NOTE | 2020-06-12 12:46 | US ---
EXAMINATION TYPE: US pelvic complete DATE OF EXAM: 06/12/2020 COMPARISON: NONE CLINICAL HISTORY: 29-year-old female N92.0 Excessive and frequent menstruation with reg. Heavy menses . TECHNIQUE: Transabdominal (TA). Findings: EXAM MEASUREMENTS: Uterus: 8.7 x 3.6 x 5.5 cm Endometrial Stripe: 1.2 cm Right Ovary: 2.0 x 1.7 x 1.4 cm Left Ovary: 2.9 x 2.3 x 2.3 cm 1. Uterus: Anteverted. The myometrium is slightly heterogeneous and there are scattered echogenic fo ci noted. 2. Endometrium: Measuring at the upper limits of normal. Some of the echogenic foci are also located within the endometrium. 3. Right Ovary: wnl 4. Left Ovary: Cystic area seen 1.7 x 1.7 x 1.7cm. 5. Bilateral Adnexa: wnl 6. Posterior cul-de-sac: wnl IMPRESSION: 1. Myometrium is heterogeneous with scattered echogenic foci. Adenomyomatosis is a differential consi deration. 2. A 1.7 cm dominant follicle or functional cyst in the left ovary.
[2020-06-12 15:45] LABS: Luteinizing Hormone 7.1 mIU/mL; Prolactin 10.4 ng/mL (2.8-29.2)
[2020-06-12 15:46] LABS: Estradiol 159.5 pg/mL; Follicle Stimulating Hormone 5.3 mIU/mL
== END | disposition home or self-care (01) ==
LOC: RADUSWWP 09:41
PROVIDERS: ATTEND Obstetrics & Gynecology
DX: N83.202 Unspecified ovarian cyst, left side (principal); N93.8 Other specified abnormal uterine and vaginal bleeding
CPT/HCPCS: 36415; 76856; 82670; 83001; 83002; 84144; 84146; 84439; 84443

== ENCOUNTER 2020-06-14 18:03 | Emergency (ER) | payer OTHER ==
[2020-06-14] MEDS ORDERED: SODIUM CHLORIDE 0.9% 1,000 ML IV STA (18:29)
[2020-06-14] MEDS ORDERED: KETOROLAC 15 MG/ML 1 ML VIAL IVP STA (18:29)
[2020-06-14 19:05] LABS: Basophils # (A) 0.1 k/uL (0-0.2); Basophils % (A) 1 %; Eosinophils # (A) 0.1 k/uL (0-0.7); Eosinophils % (A) 1 %; HCT 42.1 % (34.0-46.0); Lymphocytes % (A) 15 %; MCH 31.9 pg (25.0-35.0); MCHC 33.3 g/dL (31.0-37.0); MCV 95.9 fL (80.0-100.0); Mean Platelet Volume 7.6; Monocytes # (A) 0.7 k/uL (0-1.0); Monocytes % (A) 6 %; Neutrophils % (A) 77 %; Platelet Count 255 k/uL (150-450); RBC 4.39 m/uL (3.80-5.40); WBC 13.1 k/uL (3.8-10.6)
[2020-06-14 19:07] LABS: Appearance,Urine Clear (Clear); Bilirubin,Urine Negative (Negative); Blood,Urine Moderate (Negative); Color,Urine Yellow; Glucose,Urine (UA) Negative (Negative); Ketones,Urine 1+ (Negative); Leukocyte Esterase,Urine Negative (Negative); Mucus,Urine Occasional /hpf; Nitrite,Urine Negative (Negative); Protein,Urine Trace (Negative); RBC,Urine 6 /hpf (0-5); Specific Gravity,Urine 1.019 (1.001-1.035); Squamous Epithelial Cell,Urine 4 /hpf (0-4); WBC,Urine 1 /hpf (0-5)
[2020-06-14 19:14] LABS: ALT 9 U/L (4-34); AST 21 U/L (14-36); African American GFR (CKD) >90 (>60 ml/min/1.73 sqM); Alkaline Phosphatase 104 U/L (38-126); Anion Gap 10 mmol/L; Blood Urea Nitrogen 6 mg/dL (7-17); Calcium 9.7 mg/dL (8.4-10.2); Carbon Dioxide 24 mmol/L (22-30); Chloride 106 mmol/L (98-107); Glucose 97 mg/dL (74-99); Magnesium 1.9 mg/dL (1.6-2.3); Non-African American GFR(CKD) >90 (>60 ml/min/1.73 sqM); Potassium 3.7 mmol/L (3.5-5.1); Sodium 140 mmol/L (137-145); Total Bilirubin 0.6 mg/dL (0.2-1.3); Total Protein 7.6 g/dL (6.3-8.2)
[2020-06-14 19:17] LABS: Partial Thromboplastin Time 24.6 sec (22.0-30.0); Prothrombin Time 10.5 sec (9.0-12.0)
[2020-06-14 19:25] VITALS: RESP 16; TEMP 98.1
--- NOTE | 2020-06-14 19:43 | ED ---
General Adult HPI - General Chief complaint: Syncope Stated complaint: Passed out Time Seen by Provider: 06/14/20 18:15 Source: patient Mode of arrival: wheelchair Limitations: no limitations - History of Present Illness Initial comments: 29-year-old female patient presents to the emergency department today for evaluation of weakness, jitteriness, and syncope. Patient states for the last 3 weeks she has been feeling very weak and rundown. She states that starting on June 01 she had an 8 day. States that the bleeding was very heavy. States that she called her doctor and was told to come to the ED if she was not feeling well. Patient states today she was lying on the couch she was feeling very weak, her boyfriend states she passed out. Patient states she is currently experiencing a headache and feels like her body is shaking on the inside. Denies any nausea or vomiting. Denies constipation or diarrhea. States that she hasn't had much of an appetite. Patient states that she is under a lot of stress, she states that she has 2 children with special needs and has been basically raising them by herself. Denies any suicidal or homicidal ideation. Denies any alcohol or drug use. Denies chance of . Patient denies any recent rash, fever, chills, cough, shortness of breath, chest pain, constipation, back pain, numbness, tingling, dizziness, weakness, hematuria, dysuria, urinary urgency, urinary frequency, visual changes, or any other complaints. - Related Data Home Medications Medication Instructions Recorded Confirmed Ferrous Sulfate [Iron] 325 mg PO DAILY 02/17/19 03/07/19 Pedi Multivit No.25/Folic Acid 2 tab PO DAILY 02/17/19 03/07/19 [Flintstones Multivit Chew Tab] Previous Rx's Medication Instructions Recorded HYDROcodone/APAP 5-325MG [[place] 1 tab PO Q4HR PRN #30 tab 03/09/19 5-325] Ibuprofen [Motrin] 600 mg PO Q6HR PRN #30 tab 03/09/19 hydrOXYzine HCL [Atarax] 25 mg PO TID PRN #21 tab 06/14/20 Allergies Allergy/AdvReac Type Severity Reaction Status Date / Time No Known Allergies Allergy Verified 06/14/20 18:08 Review of Systems ROS Statement: Those systems with pertinent positive or pertinent negative responses have been documented in the HPI. ROS Other: All systems not noted in ROS Statement are negative. Past Medical History Past Medical History: Asthma Additional Past Medical History / Comment(s): heart murmur History of Any Multi-Drug Resistant Organisms: None Reported Past Surgical History: Adenoidectomy, Appendectomy, Section, Cholecystectomy, Ear Surgery, Tonsillectomy Additional Past Surgical History / Comment(s): ear tubes Past Anesthesia/Blood Transfusion Reactions: No Reported Reaction Past Psychological History: No Psychological Hx Reported Smoking Status: Never smoker Past Alcohol Use History: None Reported Past Drug Use History: None Reported - Past Family History Mother Family Medical History: No Reported History General Exam Limitations: no limitations General appearance: alert, in no apparent distress, other (This is a thin appearing adult female patient in no acute distress. Vital signs upon presentation are temperature 99.0F, pulse 100, respirations 20, blood pressure 116/66, pulse ox 98% on room air.) Eye exam: Present: normal appearance, PERRL, EOMI. Absent: scleral icterus, conjunctival injection, periorbital swelling ENT exam: Present: normal exam, normal oropharynx, mucous membranes moist Respiratory exam: Present: normal lung sounds bilaterally. Absent: respiratory distress, wheezes, rales, rhonchi, stridor Cardiovascular Exam: Present: regular rate, normal rhythm, normal heart sounds, diastolic murmur. Absent: systolic murmur, rubs, gallop, clicks GI/Abdominal exam: Present: soft, normal bowel sounds. Absent: distended, tenderness, guarding, rebound, rigid Neurological exam: Present: alert, oriented X3, CN II-XII intact, other (Strength in all 4 extremities is 5/5.) Psychiatric exam: Present: normal affect, normal mood Skin exam: Present: warm, dry, intact, normal color. Absent: rash Course Vital Signs 06/14/20 06/14/20 06/14/20 18:06 19:20 20:30 Temperature 99.0 F 98.1 F 98.1 F Pulse Rate 100 69 66 Respiratory 20 16 16 Rate Blood Pressure 116/66 107/65 100/51 O2 Sat by Pulse 98 100 97 Oximetry EKG Findings - EKG Comments: EKG Findings:: EKG obtained at 1842 shows normal sinus rhythm with a ventricular rate of 72, CT interval 158, QRS duration 84, QT 406, QTC 444. Medical Decision Making - Medical Decision Making 29-year-old female patient presented to the emergency department today for evaluation after having a syncopal episode at home. She came in reporting feeling generally weak and jittery. Physical examination was unremarkable. She is neurologically intact with no focal deficits. Labs reviewed and were unremarkable. EKG showed normal sinus rhythm. She was given IV fluids and nausea medication. Upon reevaluation she is resting comfortably in bed. States she feels much better. We did discuss labs and EKG findings. She does have a heart murmur, this is a known murmur. She'll be discharged follow-up with her director hair and her primary care physician for recheck as soon as possible. She is under a lot of stress at home, we did discuss use of hydroxyzine for anxiety, we'll give a prescription trial. Return parameters were discussed in detail. She verbalizes understanding and agrees with this plan - Lab Data Result diagrams: 06/14/20 18:35 06/14/20 18:35 Lab Results 06/14/20 06/14/20 06/14/20 Range/Units 18:35 18:35 18:35 WBC 13.1 H (3.8-10.6) k/uL RBC 4.39 (3.80-5.40) m/uL Hgb 14.0 (11.4-16.0) gm/dL Hct 42.1 (34.0-46.0) % MCV 95.9 (80.0-100.0) fL MCH 31.9 (25.0-35.0) pg MCHC 33.3 (31.0-37.0) g/dL RDW 13.0 (11.5-15.5) % Plt Count 255 (150-450) k/uL Neutrophils % 77 % Lymphocytes % 15 % Monocytes % 6 % Eosinophils % 1 % Basophils % 1 % Neutrophils # 10.0 H (1.3-7.7) k/uL Lymphocytes # 2.0 (1.0-4.8) k/uL Monocytes # 0.7 (0-1.0) k/uL Eosinophils # 0.1 (0-0.7) k/uL Basophils # 0.1 (0-0.2) k/uL PT 10.5 (9.0-12.0) sec INR 1.0 (<1.2) APTT 24.6 (22.0-30.0) sec Sodium 140 (137-145) mmol/L Potassium 3.7 (3.5-5.1) mmol/L Chloride 106 (98-107) mmol/L Carbon Dioxide 24 (22-30) mmol/L Anion Gap 10 mmol/L BUN 6 L (7-17) mg/dL Creatinine 0.57 (0.52-1.04) mg/dL Est GFR (CKD-EPI)AfAm >90 (>60 ml/min/1.73 sqM) Est GFR (CKD-EPI)NonAf >90 (>60 ml/min/1.73 sqM) Glucose 97 (74-99) mg/dL Calcium 9.7 (8.4-10.2) mg/dL Magnesium 1.9 (1.6-2.3) mg/dL Total Bilirubin 0.6 (0.2-1.3) mg/dL AST 21 (14-36) U/L ALT 9 (4-34) U/L Alkaline Phosphatase 104 (38-126) U/L Troponin I (0.000-0.034) ng/mL Total Protein 7.6 (6.3-8.2) g/dL Albumin 5.0 (3.5-5.0) g/dL Urine Color Urine Appearance (Clear) Urine pH (5.0-8.0) Ur Specific [place] (1.001-1.035) Urine Protein (Negative) Urine Glucose (UA) (Negative) Urine Ketones (Negative) Urine Blood (Negative) Urine Nitrite (Negative) Urine Bilirubin (Negative) Urine Urobilinogen (<2.0) mg/dL Ur Leukocyte Esterase (Negative) Urine RBC (0-5) /hpf Urine WBC (0-5) /hpf Ur Squamous Epith Cells (0-4) /hpf Urine Mucus (None) /hpf Urine HCG, Qual (Not Detectd) 06/14/20 06/14/20 06/14/20 Range/Units 18:35 18:49 18:49 WBC (3.8-10.6) k/uL RBC (3.80-5.40) m/uL Hgb (11.4-16.0) gm/dL Hct (34.0-46.0) % MCV (80.0-100.0) fL MCH (25.0-35.0) pg MCHC (31.0-37.0) g/dL RDW (11.5-15.5) % Plt Count (150-450) k/uL Neutrophils % % Lymphocytes % % Monocytes % % Eosinophils % % Basophils % % Neutrophils # (1.3-7.7) k/uL Lymphocytes # (1.0-4.8) k/uL Monocytes # (0-1.0) k/uL Eosinophils # (0-0.7) k/uL Basophils # (0-0.2) k/uL PT (9.0-12.0) sec INR (<1.2) APTT (22.0-30.0) sec Sodium (137-145) mmol/L Potassium (3.5-5.1) mmol/L Chloride (98-107) mmol/L Carbon Dioxide (22-30) mmol/L Anion Gap mmol/L BUN (7-17) mg/dL Creatinine (0.52-1.04) mg/dL Est GFR (CKD-EPI)AfAm (>60 ml/min/1.73 sqM) Est GFR (CKD-EPI)NonAf (>60 ml/min/1.73 sqM) Glucose (74-99) mg/dL Calcium (8.4-10.2) mg/dL Magnesium (1.6-2.3) mg/dL Total Bilirubin (0.2-1.3) mg/dL AST (14-36) U/L ALT (4-34) U/L Alkaline Phosphatase (38-126) U/L Troponin I <0.012 (0.000-0.034) ng/mL Total Protein (6.3-8.2) g/dL Albumin (3.5-5.0) g/dL Urine Color Yellow Urine Appearance Clear (Clear) Urine pH 8.0 (5.0-8.0) Ur Specific [place] 1.019 (1.001-1.035) Urine Protein Trace H (Negative) Urine Glucose (UA) Negative (Negative) Urine Ketones 1+ H (Negative) Urine Blood Moderate H (Negative) Urine Nitrite Negative (Negative) Urine Bilirubin Negative (Negative) Urine Urobilinogen 2.0 (<2.0) mg/dL Ur Leukocyte Esterase Negative (Negative) Urine RBC 6 H (0-5) /hpf Urine WBC 1 (0-5) /hpf Ur Squamous Epith Cells 4 (0-4) /hpf Urine Mucus Occasional H (None) /hpf Urine HCG, Qual Not Detected (Not Detectd) Disposition Clinical Impression: Syncope, Weakness, Heart murmur Disposition: HOME SELF-CARE Condition: Good Instructions (If sedation given, give patient instructions): Syncope (ED), Anxiety (ED), Heart Murmur (ED) Additional Instructions: Increase fluids. Rest. Follow-up with your primary care physician for recheck in 1-2 days. Take medications as directed. Make sure you are getting adequate sleep and eating decent meals. Return to the emergency department immediately for any new, worsening, or concerning symptoms. Prescriptions: hydrOXYzine HCL [Atarax] 25 mg PO TID PRN #21 tab PRN Reason: Anxiety Is patient prescribed a controlled substance at d/c from ED?: No Referrals: García Fisher Jr, DO [Doctor of Osteopathic Medicine] - 1-2 days Shai Ortiz MD [STAFF PHYSICIAN] - 1-2 days Time of Disposition: 20:15
[2020-06-14 20:31] VITALS: BP 100/51; PULSE 66
== END 2020-06-14 20:34 | disposition home or self-care (01) ==
LOC: EC 18:03
DX: I38 Endocarditis, valve unspecified (principal); R53.1 Weakness; R55 Syncope and collapse; F41.9 Anxiety disorder, unspecified; Z79.899 Other long term (current) drug therapy
CPT/HCPCS: 36415; 93005; 80053; 83735; 84484; 85025; 85610; 85730; 81001; 81025; 99284; 96374; 96361 ×2; J1885

== ENCOUNTER → 2020-11-17 | Outpatient (CLI) | payer OTHER | END | disposition home or self-care (01) | LOC: LABWHC1 14:01 | PROVIDERS: ATTEND Obstetrics & Gynecology | DX: N92.6 Irregular menstruation, unspecified (principal) | CPT/HCPCS: 36415; 84702 ==

== ENCOUNTER → 2021-07-09 | Outpatient (CLI) | payer OTHER ==
--- NOTE | 2021-07-09 14:37 | US ---
EXAMINATION TYPE: US pelvic complete DATE OF EXAM: 07/09/2021 COMPARISON: NONE CLINICAL HISTORY: N93.8 Dysfunctional uterine bleeding. vaginal bleeding in between menses. history o f 3 c-sections TECHNIQUE: Transabdominal (TA). Date of LMP: 06/26/21 EXAM MEASUREMENTS: Uterus: 10.2 x 3.6 x 4.7 cm Endometrial Stripe: 0.6 cm Right Ovary: 3.5 x 1.6 x 2.6 cm Left Ovary: 3.1 x 1.9 x 2.1 cm 1. Uterus: Anteverted multiple echogenic foci 2. Endometrium: echogenic foci noted within 3. Right Ovary: follicles noted 4. Left Ovary: cystic area = 2.6 x 1.4 x 1.7cm 5. Bilateral Adnexa: wnl 6. Posterior cul-de-sac: wnl IMPRESSION: Multiple echogenic foci uterine myometrium may reflect small calcified leiomyomas. Left ovarian cyst is likely functional in nature.
== END | disposition home or self-care (01) ==
LOC: RADUSWWP 14:00
PROVIDERS: ATTEND Obstetrics & Gynecology
DX: N93.8 Other specified abnormal uterine and vaginal bleeding (principal)
CPT/HCPCS: 76856

== ENCOUNTER 2022-07-16 17:52 | Observation (INO) | payer OTHER ==
[2022-07-16 19:16] LABS: Appearance,Urine Turbid (Clear); Bilirubin,Urine 1+ (Negative); Blood,Urine Large (Negative); Color,Urine Yellow; Glucose,Urine (UA) 1+ (Negative); Ketones,Urine 1+ (Negative); Leukocyte Esterase,Urine Large (Negative); Mucus,Urine Many /hpf; Nitrite,Urine Negative (Negative); PH, Urine 6.5 (5.0-8.0); Protein,Urine 3+ (Negative); RBC,Urine 147 /hpf (0-5); Specific Gravity,Urine 1.018 (1.001-1.035); Squamous Epithelial Cell,Urine 15 /hpf (0-4); WBC,Urine >182 /hpf (0-5)
[2022-07-16] MEDS ORDERED: ONDANSETRON 4 MG/2 ML VIAL IVP STA (20:21)
[2022-07-16] MEDS ORDERED: SODIUM CHLORIDE 0.9% 1,000 ML IV STA ×3 (20:21→22:11)
[2022-07-16] MEDS ORDERED: MORPHINE SULFATE 4 MG/ML SYRINGE IV STA (20:21)
[2022-07-16 20:41] LABS: Basophils % (A) 0 %; Eosinophils # (A) 0.2 k/uL (0-0.7); Eosinophils % (A) 1 %; HCT 42.9 % (34.0-46.0); HGB 14.5 gm/dL (11.4-16.0); Lymphocytes # (A) 0.6 k/uL (1.0-4.8); Lymphocytes % (A) 3 %; MCH 32.5 pg (25.0-35.0); MCHC 33.9 g/dL (31.0-37.0); MCV 95.8 fL (80.0-100.0); Mean Platelet Volume 7.2; Monocytes # (A) 1.1 k/uL (0-1.0); Monocytes % (A) 5 %; Neutrophils # (A) 19.2 k/uL (1.3-7.7); Neutrophils % (A) 90 %; Platelet Count 217 k/uL (150-450); RBC 4.48 m/uL (3.80-5.40); RDW 13.1 % (11.5-15.5); WBC 21.3 k/uL (3.8-10.6)
[2022-07-16 20:51] LABS: ALT 15 U/L (4-34); AST 24 U/L (14-36); African American GFR (CKD) 70 (>60 ml/min/1.73 sqM); Albumin 4.5 g/dL (3.5-5.0); Alkaline Phosphatase 124 U/L (38-126); Amylase 30 U/L (30-110); Anion Gap 22 mmol/L; Blood Urea Nitrogen 14 mg/dL (7-17); Calcium 9.2 mg/dL (8.4-10.2); Carbon Dioxide 14 mmol/L (22-30); Chloride 98 mmol/L (98-107); Glucose 137 mg/dL (74-99); Lipase <10 U/L (23-300); Non-African American GFR(CKD) 61 (>60 ml/min/1.73 sqM); Potassium 3.2 mmol/L (3.5-5.1); Sodium 134 mmol/L (137-145); Total Protein 7.7 g/dL (6.3-8.2)
[2022-07-16 21:07] LABS: HCG,Quantitative Serum <2.4 mIU/mL
--- NOTE | 2022-07-16 21:37 | CT ---
EXAMINATION TYPE: CT abdomen pelvis wo con CT DLP: 257.2 mGycm, Automated exposure control for dose reduction was used. DATE OF EXAM: 07/16/2022 9:16 PM COMPARISON: None CLINICAL INDICATION:Female, 32 years old with history of concern for rt sided nephrolithiasis; right side nephrolithiasis TECHNIQUE: Axial CT of the abdomen and pelvis. Sagittal and coronal reformats were created on a [employer] workstation. Contrast used: None Oral contrast used: without Oral Contrast FINDINGS: LOWER CHEST: Unremarkable ABDOMEN LIVER: Unremarkable GALLBLADDER AND BILE DUCTS: Gallbladder is surgically absent with mild intrahepatic and extra hepatic biliary dilatation likely physiologic and a postcholecystectomy change. No evidence of choledocholit hiasis. PANCREAS: Unremarkable. SPLEEN: Unremarkable. ADRENAL GLANDS: Unremarkable. KIDNEYS AND URETERS: Asymmetric fat stranding changes seen around the right kidney. No evidence of hy dronephrosis or obstructive calculus. PELVIS BLADDER: Unremarkable REPRODUCTIVE: Unremarkable. ABDOMEN & PELVIS STOMACH AND BOWEL: No evidence of bowel obstruction. PERITONEUM: No evidence of pneumoperitoneum or free fluid. VASCULATURE: No evidence of aortic aneurysm. MUSCULOSKELETAL: No acute osseous abnormalities LYMPH NODES: No gross evidence for lymphadenopathy. SOFT TISSUE/ABDOMINAL WALL: Unremarkable IMPRESSION: Asymmetric perinephric fat stranding which is suboptimally visualized given positive anterior abdomin al fat. Correlate for pyelonephritis. No evidence of obstructive calculus. This could represent recen tly passed calculus.
[2022-07-16] MEDS ORDERED: CEFEPIME 2 GM in SODIUM CHLORIDE 0.9% 100 ML IVPB ONE (22:00)
[2022-07-16] MEDS ORDERED: NALOXONE 0.4 MG/ML 1 ML VIAL IV PRN (22:50)
--- NOTE | 2022-07-16 23:03 | ED ---
General Adult HPI - General Chief complaint: Back Pain/Injury Stated complaint: Back pain,Vomiting Time Seen by Provider: 07/16/22 20:03 Source: patient Mode of arrival: ambulatory Limitations: no limitations - History of Present Illness Initial comments: Patient is a 32-year-old female who presents emergency Department complaining of right-sided flank pain, subjective fevers, nausea and vomiting. No history kidney stones. Has not expenses been previously. Denies vaginal discharge or bleeding. Denies anterior abdominal pain. Denies history kidney stones. Has not noticed any blood in her urine. Denies chest pain or shortness of breath. Has been unable to tolerate oral intake. Symptoms have been ongoing for the last few days over the weekend. Some to be getting worse. Believe she is dehydrated. Denies any cough. No known sick contacts. Presents for further evaluation of this time. Concern for possible urine infection. - Related Data Home Medications Medication Instructions Recorded Confirmed No Known Home Medications 07/16/22 07/16/22 Allergies Allergy/AdvReac Type Severity Reaction Status Date / Time No Known Allergies Allergy Verified 07/16/22 21:04 Review of Systems ROS Statement: Those systems with pertinent positive or pertinent negative responses have been documented in the HPI. Review of Systems: CONST: Denies fever EYES: Denies blurry vision ENT: Denies nasal congestion C/V: Denies Chest pain RESP: Denies shortness of breath GI: Endorses right flank pain. : Denies dysuria SKIN: Denies rash. MSK: Denies joint pain. NEURO: Denies headache ROS Other: All systems not noted in ROS Statement are negative. Past Medical History Past Medical History: Asthma Additional Past Medical History / Comment(s): heart murmur History of Any Multi-Drug Resistant Organisms: None Reported Past Surgical History: Adenoidectomy, Appendectomy, Section, Cholecystectomy, Ear Surgery, Tonsillectomy Additional Past Surgical History / Comment(s): ear tubes Past Anesthesia/Blood Transfusion Reactions: No Reported Reaction Past Psychological History: No Psychological Hx Reported Smoking Status: Never smoker Past Alcohol Use History: None Reported Past Drug Use History: None Reported - Past Family History Mother Family Medical History: No Reported History General Exam - General Exam Comments Initial Comments: General: Appears in mild to moderate distress secondary to right flank pain. HEAD: Normal with no signs of head trauma. EYES: PERRLA, EOMI, conjunctiva normal, no discharge. ENT: Hearing grossly intact, normal oropharynx. Dry mucous membranes. RESPIRATORY: Clear breath sounds bilaterally. No wheezes, rales, or rhonchi. C/V: Mild tachycardia. S1 and S2 auscultated, no edema, peripheral pulses 2+ and intact throughout ABD: Abdomen is soft, nondistended. Tender to palpation over the right flank. Right CVA tenderness to percussion. No guarding. No rebound tenderness. No peritoneal signs. EXT: Normal range of motion, no obvious deformity SKIN: No rashes or lesions observed on exposed skin. NEURO: Alert and oriented 4. Limitations: no limitations Course Vital Signs 07/16/22 07/16/22 18:37 21:29 Temperature 98.1 F Pulse Rate 106 H 88 Respiratory 18 16 Rate Blood Pressure 121/60 117/83 O2 Sat by Pulse 99 98 Oximetry Medical Decision Making - Medical Decision Making Based on the patient's presentation and physical exam, I'm concerned for possible UTI, pyelonephritis, or kidney stone. She appears dehydrated with nausea and vomiting. We'll obtain abdominal laboratory studies, urine studies, test. CT abdomen and pelvis without contrast was also be obtained. She was in agreement with this plan. Vital signs are within normal limits except for mild sinus tachycardia. Patient's O2 sat is remarkable for leukocytosis of 21. She is mildly hypok alemic at 3.2 which was replenished. She has a unknown cause anion gap metabolic acidosis, possibly secondary to nausea and vomiting. Lactic acid is within normal limits after fluid administration. Urinalysis is a slightly contaminated catch but shows a large number of WBCs, mucus present, leukocyte esterase, rbc's. 1+ ketones. CT shows signs concerning for right-sided pyelonephritis. No kidney stones seen. On reevaluation, after the patient. Due to the laboratory study abnormality to did recommend admission for IV and about expert she was in agreement with this plan. We'll be starting IV cefepime. When necessary morphine, Zofran will be ordered. We will continue IV fluids. She'll be admitted to observation. She was in agreement this plan. I spoke with the admitting physician, Dr. Lowry who accepted the patient. - Lab Data Result diagrams: 07/16/22 20:35 07/16/22 20:35 Lab Results 09/07/16/22 07/16/22 Range/Units 18:49 18:49 20:35 WBC 21.3 H (3.8-10.6) k/uL RBC 4.48 (3.80-5.40) m/uL Hgb 14.5 (11.4-16.0) gm/dL Hct 42.9 (34.0-46.0) % MCV 95.8 (80.0-100.0) fL MCH 32.5 (25.0-35.0) pg MCHC 33.9 (31.0-37.0) g/dL RDW 13.1 (11.5-15.5) % Plt Count 217 (150-450) k/uL MPV 7.2 Neutrophils % 90 % Lymphocytes % 3 % Monocytes % 5 % Eosinophils % 1 % Basophils % 0 % Neutrophils # 19.2 H (1.3-7.7) k/uL Lymphocytes # 0.6 L (1.0-4.8) k/uL Monocytes # 1.1 H (0-1.0) k/uL Eosinophils # 0.2 (0-0.7) k/uL Basophils # 0.0 (0-0.2) k/uL Sodium (137-145) mmol/L Potassium (3.5-5.1) mmol/L Chloride (98-107) mmol/L Carbon Dioxide (22-30) mmol/L Anion Gap mmol/L BUN (7-17) mg/dL Creatinine (0.52-1.04) mg/dL Est GFR (CKD-EPI)AfAm (>60 ml/min/1.73 sqM) Est GFR (CKD-EPI)NonAf (>60 ml/min/1.73 sqM) Glucose (74-99) mg/dL Plasma Lactic Acid Get (0.7-2.0) mmol/L Calcium (8.4-10.2) mg/dL Total Bilirubin (0.2-1.3) mg/dL AST (14-36) U/L ALT (4-34) U/L Alkaline Phosphatase (38-126) U/L Total Protein (6.3-8.2) g/dL Albumin (3.5-5.0) g/dL Amylase (30-110) U/L Lipase (23-300) U/L HCG, Quant mIU/mL Urine Color Yellow Urine Appearance Turbid H (Clear) Urine pH 6.5 (5.0-8.0) Ur Specific [place] 1.018 (1.001-1.035) Urine Protein 3+ H (Negative) Urine Glucose (UA) 1+ H (Negative) Urine Ketones 1+ H (Negative) Urine Blood Large H (Negative) Urine Nitrite Negative (Negative) Urine Bilirubin 1+ H (Negative) Urine Urobilinogen 2.0 (<2.0) mg/dL Ur Leukocyte Esterase Large H (Negative) Urine RBC 147 H (0-5) /hpf Urine WBC >182 H (0-5) /hpf Ur Squamous Epith Cells 15 H (0-4) /hpf Urine Mucus Many H (None) /hpf Urine HCG, Qual Not Detected (Not Detectd) 07/16/22 07/16/22 Range/Units 20:35 21:29 WBC (3.8-10.6) k/uL RBC (3.80-5.40) m/uL Hgb (11.4-16.0) gm/dL Hct (34.0-46.0) % MCV (80.0-100.0) fL MCH (25.0-35.0) pg MCHC (31.0-37.0) g/dL RDW (11.5-15.5) % Plt Count (150-450) k/uL MPV Neutrophils % % Lymphocytes % % Monocytes % % Eosinophils % % Basophils % % Neutrophils # (1.3-7.7) k/uL Lymphocytes # (1.0-4.8) k/uL Monocytes # (0-1.0) k/uL Eosinophils # (0-0.7) k/uL Basophils # (0-0.2) k/uL Sodium 134 L (137-145) mmol/L Potassium 3.2 L (3.5-5.1) mmol/L Chloride 98 (98-107) mmol/L Carbon Dioxide 14 L (22-30) mmol/L Anion Gap 22 mmol/L BUN 14 (7-17) mg/dL Creatinine 1.19 H (0.52-1.04) mg/dL Est GFR (CKD-EPI)AfAm 70 (>60 ml/min/1.73 sqM) Est GFR (CKD-EPI)NonAf 61 (>60 ml/min/1.73 sqM) Glucose 137 H (74-99) mg/dL Plasma Lactic Acid Get 0.7 (0.7-2.0) mmol/L Calcium 9.2 (8.4-10.2) mg/dL Total Bilirubin 1.0 (0.2-1.3) mg/dL AST 24 (14-36) U/L ALT 15 (4-34) U/L Alkaline Phosphatase 124 (38-126) U/L Total Protein 7.7 (6.3-8.2) g/dL Albumin 4.5 (3.5-5.0) g/dL Amylase 30 (30-110) U/L Lipase <10 L (23-300) U/L HCG, Quant <2.4 mIU/mL Urine Color Urine Appearance (Clear) Urine pH (5.0-8.0) Ur Specific [place] (1.001-1.035) Urine Protein (Negative) Urine Glucose (UA) (Negative) Urine Ketones (Negative) Urine Blood (Negative) Urine Nitrite (Negative) Urine Bilirubin (Negative) Urine Urobilinogen (<2.0) mg/dL Ur Leukocyte Esterase (Negative) Urine RBC (0-5) /hpf Urine WBC (0-5) /hpf Ur Squamous Epith Cells (0-4) /hpf Urine Mucus (None) /hpf Urine HCG, Qual (Not Detectd) Disposition Clinical Impression: Pyelonephritis, Metabolic acidosis, Nausea and vomiting Disposition: ADMITTED IP TO THIS [facility] Condition: Stable Referrals: None,Stated [Primary Care Provider] - 1-2 days Time of Disposition: 22:00
[2022-07-17] MEDS: HEPARIN SODIUM,PORCINE/PF 5,000 UNIT/0.5 ML SYRINGE SQ SCH ×3 (00:28→14:21)
[2022-07-17] MEDS: ONDANSETRON 4 MG/2 ML VIAL IVP PRN ×3 (01:51→17:57)
[2022-07-17] MEDS: MORPHINE SULFATE 4 MG/ML SYRINGE IV PRN ×6 (01:55→23:13)
[2022-07-17] MEDS ORDERED: POTASSIUM CHLORIDE ER 20 MEQ TAB.ER PO STA (04:22)
--- NOTE | 2022-07-17 04:27 | P.HPIM ---
History of Present Illness H&P Date: 07/16/22 Chief Complaint: Right flank pain 32-year-old femalesignificant past medical history Patient comes in with couple day history of right flank pain colicky in nature with associated nausea vomiting nonbloody nonbilious, fevers and chills. She denies any history of kidney stones denies any history of recurrent UTI denies any vaginal discharge or bleeding. Denies any upper respiratory infection symptoms denies any diarrhea. Denies any sick contact or any other family mem bers with similar symptoms. She does report some urinary urgency and frequency. Workup in the ED was suggestive of UTI Urinalysis was dirty sample CT of the abdomen and pelvis was suggestive of perinephric fat stranding suggestive of pyelonephritis Review of Systems Pertinent positives as noted in HPI. All other systems were reviewed and are negative Past Medical History Past Medical History: Asthma Additional Past Medical History / Comment(s): heart murmur History of Any Multi-Drug Resistant Organisms: None Reported Past Surgical History: Adenoidectomy, Appendectomy, Section, Cholecystectomy, Ear Surgery, Tonsillectomy Additional Past Surgical History / Comment(s): ear tubes Past Anesthesia/Blood Transfusion Reactions: No Reported Reaction Past Psychological History: No Psychological Hx Reported Smoking Status: Never smoker Past Alcohol Use History: None Reported Past Drug Use History: None Reported - Past Family History Mother Additional Family Medical History / Comment(s): Multiple sclerosis in the family Medications and Allergies Home Medications Medication Instructions Recorded Confirmed Type No Known Home Medications 07/16/22 07/16/22 History Allergies Allergy/AdvReac Type Severity Reaction Status Date / Time clindamycin Allergy Anaphylaxis Verified 07/17/22 00:53 Physical Exam Vitals: Vital Signs Temp Pulse Pulse Resp BP BP Pulse Ox 07/16/22 23:43 99.2 F 95 12 101/61 100 07/16/22 23:06 99.2 F 95 16 116/61 98 07/16/22 21:29 88 16 117/83 98 07/16/22 18:37 98.1 F 106 H 18 121/60 99 Intake and Output 07/16/22 07/16/22 07/17/22 14:59 22:59 06:59 Other: Voiding Method Toilet # Voids 0 Weight 48.988 kg 48.988 kg Constitutional: No acute distress, conversant, pleasant Eyes: Anicteric sclerae, moist conjunctiva, Pupils equal round reactive to light ENMT: NC/AT Oropharynx clear, no erythema, or exudates Neck: Supple, no masses, or JVD No carotid bruits No thyromegaly Lungs: Clear to auscultation Clear to percussion Normal respiratory effort, no accessory muscle use Cardiovascular: Heart regular in rate and rhythm, No murmurs, gallops, or rubs No peripheral edema Abdominal: Soft, tenderness to percussion over the right costovertebral angle Nontender, no guarding, rebound or rigidity Abdomen moving with respiration Normoactive bowel sounds No hepatomegaly, No splenomegaly No palpable mass No abdominal wall hernia noted Skin: Normal temperature, tone, texture, turgor No induration No subcutaneous nodules No rash, lesions No ulcers Extremities: No digital cyanosis No clubbing Pedal pulses intact and symmetrical Radial pulses intact and symmetrical No calf tenderness Psychiatric: Alert and oriented to person, place and time Appropriate affect fair judgement Neuro Muscles Strength 5/5 in all 4 extremities Sensation to light touch grossly present throughout Cranial nerves II-XII grossly intact No focal sensory deficits Lymphatics: no palpable cervical or supraclavicular , or inguinal lymph nodes Results CBC & Chem 7: 07/16/22 20:35 07/16/22 20:35 Labs: Abnormal Lab Results - Last 24 Hours (Table) 07/16/22 07/16/22 07/16/22 Range/Units 18:49 20:35 20:35 WBC 21.3 H (3.8-10.6) k/uL Neutrophils # 19.2 H (1.3-7.7) k/uL Lymphocytes # 0.6 L (1.0-4.8) k/uL Monocytes # 1.1 H (0-1.0) k/uL Sodium 134 L (137-145) mmol/L Potassium 3.2 L (3.5-5.1) mmol/L Carbon Dioxide 14 L (22-30) mmol/L Creatinine 1.19 H (0.52-1.04) mg/dL Glucose 137 H (74-99) mg/dL Lipase <10 L (23-300) U/L Urine Appearance Turbid H (Clear) Urine Protein 3+ H (Negative) Urine Glucose (UA) 1+ H (Negative) Urine Ketones 1+ H (Negative) Urine Blood Large H (Negative) Urine Bilirubin 1+ H (Negative) Ur Leukocyte Esterase Large H (Negative) Urine RBC 147 H (0-5) /hpf Urine WBC >182 H (0-5) /hpf Ur Squamous Epith Cells 15 H (0-4) /hpf Urine Mucus Many H (None) /hpf Microbiology - Last 24 Hours (Table) 07/16/22 18:49 Urine Culture - Preliminary Urine,Voided Thrombosis Risk Factor Assmnt - Choose All That Apply Any of the Below Risk Factors Present?: No Other Risk Factors: No Other congenital or acquired thrombophilia - If yes, enter type in comment: No Thrombosis Risk Factor Assessment Level: Very Low Risk Assessment and Plan Assessment: Sepsis secondary to UTI Acute kidney injury Plan Follow-up cultures Patient initiated on antibiotics in the ED was cefepime Tylenol for fever Zofran for nausea vomiting Pain control with morphine IV fluid hydration normal saline Supportive care Avoid nephrotoxic meds stays Abdominal computed tomography scan reviewed suggestive of right perinephric fat stranding no evidence of kidney stones. DVT prophylaxis heparin subcu 3 times a day Full code
[2022-07-17] MEDS: ACETAMINOPHEN TAB 325 MG TAB PO PRN ×3 (04:48→21:12)
[2022-07-17] MEDS: CEFEPIME 2 GM in SODIUM CHLORIDE 0.9% 100 ML IVPB SCH ×3 (06:22→21:12)
[2022-07-17 09:18] LABS: Basophils % (A) 0 %; Eosinophils % (A) 0 %; HCT 37.8 % (34.0-46.0); HGB 12.3 gm/dL (11.4-16.0); Lymphocytes % (A) 7 %; MCH 31.8 pg (25.0-35.0); MCHC 32.6 g/dL (31.0-37.0); MCV 97.6 fL (80.0-100.0); Mean Platelet Volume 8.6; Monocytes # (A) 0.9 k/uL (0-1.0); Monocytes % (A) 6 %; Neutrophils # (A) 12.7 k/uL (1.3-7.7); Neutrophils % (A) 86 %; Platelet Count 160 k/uL (150-450); RBC 3.87 m/uL (3.80-5.40); RDW 13.3 % (11.5-15.5); WBC 14.9 k/uL (3.8-10.6)
[2022-07-17 09:27] LABS: African American GFR (CKD) >90 (>60 ml/min/1.73 sqM); Anion Gap 14 mmol/L; Blood Urea Nitrogen 8 mg/dL (7-17); Calcium 7.3 mg/dL (8.4-10.2); Carbon Dioxide 17 mmol/L (22-30); Chloride 106 mmol/L (98-107); Glucose 102 mg/dL (74-99); Non-African American GFR(CKD) >90 (>60 ml/min/1.73 sqM); Potassium 3.4 mmol/L (3.5-5.1); Sodium 137 mmol/L (137-145)
--- NOTE | 2022-07-17 11:40 | P.PN ---
Subjective Progress Note Date: 07/17/22 Hospital course: Patient is a very pleasant 32-year-old female with the past medical history of asthma. She presented to the emergency department with a chief complaint of right flank pain, urinary frequency, nausea, vomiting, fever, and chills. She underwent full evaluation in the emergency department and was found to have significant leukocytosis with a left shift with a white blood cell count of 21.3 and neutrophils of 19.2. In addition patient was found to have hyponatremia with sodium of 134, hypokalemia with potassium 3.2 and an acute kidney injury with BUN 14, creatinine 1.19, and GFR of 61 with baseline creatinine of 0.8. Urinalysis was a contaminated specimen but concerning for infection. CT abdomen and pelvis without contrast revealing asymmetric perinephretic fat stranding concerning for acute pyelonephritis, negative for obstructive calculus. Urine culture sent to lab for analysis. Patient flagging for sepsis with temp 100.6F, heart rate 104, blood pressure 107/54 and again elevated WBC count of 21.3. Lactate was 0.7. Patient received sepsis bolus and started on IV antibiotic Cefepime along with continuous IV fluid hydration. Patient admitted under our services. Physical exam: Patient seen and fully evaluated at bedside this morning. Temperature high over the past 24 hours was 100.6F. Patient reports persistent chills, nausea, suprapubic pressure, urinary frequency, and right flank pain. She denies having any headache, lightheadedness, dizziness, chest pain, palpitations, or further episodes of vomiting. Patient denies experiencing dysuria, urgency or hematuria. Patient remains on IV antibiotic cefepime pending urine culture r esults. Repeat labs showing improvement of WBCs down to 14.9 Vital signs reviewed and stable. General: Nontoxic, no distress and appears stated age. Derm: Skin warm and dry, normal coloration for ethnicity. Head: Atraumatic, normocephalic and symmetric. Eyes: EOMs intact, no lid lag, and anicteric sclera Mouth: no lip lesions, mucus membranes moist Cardiovascular: regular rate and rhythm with normal S1S2, no murmur, positive posterior tibial pulses bilaterally, and cap refill < 2 seconds. Lungs: Respirations even, regular, and unlabored on room air. Lungs CTA bilaterally, no rhonchi, no rales, no wheezing, and no accessory muscle usage. GI/: soft, nontender to palpation, no guarding, no appreciable organomegaly. Positive for right-sided CVA tenderness. Ext: ROM intact. No gross muscle atrophy, no edema, no contractures Neuro: Speech clear, face symmetrical and CN II-XII grossly intact with no noted focal neuro deficits Psych: Alert and oriented to person, place, time, and situation. Appropriate and pleasant affect. Assessment and Plan of Care: Sepsis Secondary to Acute Pyelonephritis Acute kidney injury, resolved Severe leukocytosis -Follow up on urine and blood cultures. -Continue IV antibiotics with cefepime pending culture results. -Symptomatic care and pain management, Tylenol as needed for fever, Zofran as needed for nausea and/or vomiting, and morphine as needed for pain. -Continue IV fluid hydration. Hypokalemia -Potassium replaced, continue to monitor with repeat a.m. labs. Hyponatremia, resolved CODE STATUS: Full code DVT prophylaxis: Heparin Discussed with: Patient and RN Anticipated discharge date: 1-[address]: Home A total of 33 minutes was spent on the care of this complex patient more than 50% of the time was spent in counseling and care coordination. Objective - Vital Signs Vital signs: Vital Signs Temp 98.8 F 07/17/22 06:20 Pulse 104 H 07/17/22 04:00 Resp 12 07/17/22 04:00 BP 107/54 07/17/22 04:00 Pulse Ox 98 07/17/22 04:00 FiO2 Intake & Output 07/16/22 07/17/22 07/17/22 18:59 06:59 18:59 Weight 48.988 kg 48.988 kg Other: Voiding Method Toilet # Voids 3 - Labs CBC & Chem 7: 07/17/22 07:49 07/17/22 07:49 Labs: Abnormal Lab Results - Last 24 Hours (Table) 07/16/22 07/16/22 07/16/22 Range/Units 18:49 20:35 20:35 WBC 21.3 H (3.8-10.6) k/uL Neutrophils # 19.2 H (1.3-7.7) k/uL Lymphocytes # 0.6 L (1.0-4.8) k/uL Monocytes # 1.1 H (0-1.0) k/uL Sodium 134 L (137-145) mmol/L Potassium 3.2 L (3.5-5.1) mmol/L Carbon Dioxide 14 L (22-30) mmol/L Creatinine 1.19 H (0.52-1.04) mg/dL Glucose 137 H (74-99) mg/dL Lipase <10 L (23-300) U/L Urine Appearance Turbid H (Clear) Urine Protein 3+ H (Negative) Urine Glucose (UA) 1+ H (Negative) Urine Ketones 1+ H (Negative) Urine Blood Large H (Negative) Urine Bilirubin 1+ H (Negative) Ur Leukocyte Esterase Large H (Negative) Urine RBC 147 H (0-5) /hpf Urine WBC >182 H (0-5) /hpf Ur Squamous Epith Cells 15 H (0-4) /hpf Urine Mucus Many H (None) /hpf Microbiology - Last 24 Hours (Table) 07/16/22 18:49 Urine Culture - Preliminary Urine,Voided
[2022-07-17] MEDS ORDERED: bisacodyL 5 MG TABLET.DR PO PRN (15:04)
[2022-07-17] MEDS ORDERED: Potassium Replacement Protocol 1 EACH MISC MISCELLANE PRN (15:29)
[2022-07-17] MEDS ORDERED: POTASSIUM CHLORIDE ER 20 MEQ TAB.ER PO SCH (16:00)
[2022-07-17] MEDS: POTASSIUM CHLORIDE ER 20 MEQ TAB.ER PO SCH ×2 (16:03→17:55)
[2022-07-18] MEDS: HEPARIN SODIUM,PORCINE/PF 5,000 UNIT/0.5 ML SYRINGE SQ SCH ×2 (01:44→08:23)
[2022-07-18] MEDS: MORPHINE SULFATE 4 MG/ML SYRINGE IV PRN (04:59)
[2022-07-18] MEDS: CEFEPIME 2 GM in SODIUM CHLORIDE 0.9% 100 ML IVPB SCH (05:00)
[2022-07-18] MEDS: ONDANSETRON 4 MG/2 ML VIAL IVP PRN (05:00)
[2022-07-18 05:29] VITALS: RESP 17
[2022-07-18] MEDS: ACETAMINOPHEN TAB 325 MG TAB PO PRN (08:58)
[2022-07-18 09:17] LABS: HCT 37.5 % (34.0-46.0); HGB 12.2 gm/dL (11.4-16.0); MCHC 32.6 g/dL (31.0-37.0); MCV 98.1 fL (80.0-100.0); Mean Platelet Volume 8.4; Platelet Count 139 k/uL (150-450); RBC 3.82 m/uL (3.80-5.40); WBC 9.1 k/uL (3.8-10.6)
[2022-07-18 09:34] LABS: ALT 34 U/L (4-34); AST 37 U/L (14-36); African American GFR (CKD) >90 (>60 ml/min/1.73 sqM); Albumin 3.3 g/dL (3.5-5.0); Alkaline Phosphatase 136 U/L (38-126); Anion Gap 10 mmol/L; Blood Urea Nitrogen 5 mg/dL (7-17); Calcium 8.2 mg/dL (8.4-10.2); Carbon Dioxide 24 mmol/L (22-30); Chloride 102 mmol/L (98-107); Glucose 115 mg/dL (74-99); Non-African American GFR(CKD) >90 (>60 ml/min/1.73 sqM); Potassium 4.1 mmol/L (3.5-5.1); Sodium 136 mmol/L (137-145); Total Bilirubin 0.7 mg/dL (0.2-1.3); Total Protein 5.7 g/dL (6.3-8.2)
[2022-07-18 11:43] VITALS: BP 99/64; PULSE 75; TEMP 98.3
--- NOTE | 2022-07-18 13:05 | P.DS ---
Providers Date of admission: 07/16/22 22:50 Expected date of discharge: 07/18/22 Attending physician: Cedrick Lowry MD Primary care physician: Stated None Hospital Course: Discharge Diagnosis: Sepsis Secondary to Acute Pyelonephritis, patient received 2 days of IV antibiotics with cefepime and is being discharged home on Ceftin 500 mg twice daily for an additional 8 days to complete a 10 day course of antibiotics for treatment of pyelonephritis. Patient reports full resolution of previously reported right flank pain, urinary frequency/urgency, and suprapubic pressure. Leukocytosis and acute kidney injury resolved. Vital signs stable. Blood culture and urine culture showing no growth to date. Acute kidney injury, resolved Severe leukocytosis, Leukocytosis resolved with initial WBC count of 21.3 down to 9.1 on day of discharge. Hypokalemia, resolved Hyponatremia, resolved Hospital Course: Patient is a very pleasant 32-year-old female with the past medical history of asthma. She presented to the emergency department with a chief complaint of right flank pain, urinary frequency, nausea, vomiting, fever, and chills. She underwent full evaluation in the emergency department and was found to have significant leukocytosis with a left shift with a white blood cell count of 21.3 and neutrophils of 19.2. In addition patient was found to have hyponatremia with sodium of 134, hypokalemia with potassium 3.2 and an acute kidney injury with BUN 14, creatinine 1.19, and GFR of 61 with baseline creatinine of 0.8. Urinalysis was a contaminated specimen but concerning for infection. CT abdomen and pelvis without contrast revealing asymmetric perinephretic fat stranding concerning for acute pyelonephritis, negative for obstructive calculus. Urine culture sent to lab for analysis. Patient flagging for sepsis with temp 100.6F, heart rate 104, blood pressure 107/54 and again elevated WBC count of 21.3. Lactate was 0.7. Patient received sepsis bolus and started on IV antibiotic Cefepime along with continuous IV fluid hydration. Patient admitted under our services. Patient received 2 days of IV antibiotics with cefepime and replacement of abnormal electrolyte values. Leukocytosis resolved with initial WBC count of 21.3 down to 9.1 on day of discharge. Hyponatremia resolved, hypokalemia resolved, and acute kidney injury resolved. Patient continued to spike occasional elevated temps which was easily treated with Tylenol. Patient reports feeling 100% better today and no longer experiencing any right flank p ain. Patient requesting discharge. Urine culture preliminary results are negative and discussed with Micro reporting no growth to date. Blood culture showing no growth 24 hours.patient is afebrile and vital signs unremarkable with temp 98.4, heart rate 81, and blood pressure 105/70. Patient is medically stable for discharge at this time. Patient being discharged home onCeftin 500 mg twice daily for an additional 8 days to complete a 10 day course of antibiotics for treatment of pyelonephritis. . Physical exam: Vital signs reviewed and stable. General: Nontoxic, no distress and appears stated age. Derm: Skin warm and dry, normal coloration for ethnicity. Head: Atraumatic, normocephalic and symmetric. Eyes: EOMs intact, no lid lag, and anicteric sclera Mouth: no lip lesions, mucus membranes moist Cardiovascular: regular rate and rhythm with normal S1S2, no murmur, positive posterior tibial pulses bilaterally, and cap refill < 2 seconds. Lungs: Respirations even, regular, and unlabored on room air. Lungs CTA bilaterally, no rhonchi, no rales, no wheezing, and no accessory muscle usage. GI/: soft, nontender to palpation, no guarding, no appreciable organomegaly. Negative for CVA tenderness. Ext: ROM intact. No gross muscle atrophy, no edema, no contractures Neuro: Speech clear, face symmetrical and CN II-XII grossly intact with no noted focal neuro deficits Psych: Alert and oriented to person, place, time, and situation. Appropriate and pleasant affect. A total of 35 minutes of time were spent preparing this complex discharge summary. Pt was discharged on 07/18/22 at 12:55 PM. Patient Condition at Discharge: Stable Plan - Discharge Summary New Discharge Prescriptions: New cefUROXime axetiL [Ceftin] 500 mg PO BID 8 Days #16 tab Ondansetron [Ondansetron Odt] 4 mg PO Q6H PRN #30 tab PRN Reason: Nausea And Vomiting Ibuprofen [Motrin] 600 mg PO Q6HR PRN #30 tab PRN Reason: Pain Discharge Medication List Ibuprofen [Motrin] 600 mg PO Q6HR PRN #30 tab 07/18/22 [Rx] Ondansetron [Ondansetron Odt] 4 mg PO Q6H PRN #30 tab 07/18/22 [Rx] cefUROXime axetiL [Ceftin] 500 mg PO BID 8 Days #16 tab 07/18/22 [Rx] Follow up Appointment(s)/Referral(s): Ángel Morrison MD [STAFF PHYSICIAN] - 1 Week Activity/Diet/Wound Care/Special Instructions: Activity: As tolerated. Diet: Regular diet Special Instructions: Take all of your medications as directed and remember to keep all of your doctor's appointments and follow-up as needed. Thank you for allowing us to participate in your care, it was truly a pleasure having you for our patient!!! Discharge Disposition: HOME SELF-CARE
== END 2022-07-18 14:32 | disposition home or self-care (01) ==
LOC: EC 17:52 → 3SCARD 22:50
PROVIDERS: ADMIT Internal Medicine; ATTEND Internal Medicine
DX: N10 Acute pyelonephritis (principal); A41.9 Sepsis, unspecified organism; N17.9 Acute kidney failure, unspecified; E87.6 Hypokalemia; E87.1 Hypo-osmolality and hyponatremia; E87.2 Acidosis; J45.909 Unspecified asthma, uncomplicated; R01.1 Cardiac murmur, unspecified; Z90.49 Acquired absence of other specified parts of digestive tract; Z82.0 Family history of epilepsy and other diseases of the nervous system; Z88.1 Allergy status to other antibiotic agents; Z32.02 Encounter for pregnancy test, result negative
CPT/HCPCS: 96376 ×2; 96365; 96366 ×2; 96372 ×2; 96361; 96375; 99285; 36415; 80053 ×2; 80048; 82150; 83605; 83690; 85025 ×2; 85027; 81001; 81025; 84702; 87040; 87086; 87077; 87186; 74176; G0378 ×3; J2270 ×3; J2405 ×3; J0692 ×3

== ENCOUNTER 2024-11-06 18:24 | Emergency (ER) | payer OTHER ==
[2024-11-06 18:53] VITALS: RESP 18
[2024-11-06 19:49] LABS: Amorphous Sediment,Urine Rare /hpf; Appearance,Urine Clear (Clear); Bacteria,Urine Occasional /hpf; Bilirubin,Urine Negative (Negative); Blood,Urine Small (Negative); Color,Urine Yellow; Glucose,Urine (UA) Negative (Negative); Ketones,Urine Trace (Negative); Leukocyte Esterase,Urine Negative (Negative); Mucus,Urine Few /hpf; Nitrite,Urine Negative (Negative); PH, Urine 7.5 (5.0-8.0); Protein,Urine Trace (Negative); RBC,Urine 6 /hpf (0-5); Squamous Epithelial Cell,Urine 4 /hpf (0-4); WBC,Urine 6 /hpf (0-5)
[2024-11-06] MEDS: IPRATROPIUM-ALBUTEROL 3 ML NEB INHALATION STA (19:57)
--- NOTE | 2024-11-06 19:59 | ED ---
General Adult HPI - General Source: patient, RN notes reviewed, old records reviewed Mode of arrival: wheelchair Limitations: no limitations - History of Present Illness Radiation: non-radiation Consistency: colicky Improves with: none Worsens with: none Associated Symptoms: syncope Treatments Prior to Arrival: none <Oziel Richard - Last Filed: 11/08/24 01:52> - General Source: patient Mode of arrival: wheelchair Limitations: no limitations <Susan Vaca - Last Filed: 11/09/24 14:28> - General Chief complaint: Weakness Stated complaint: near syncope Time Seen by Provider: 11/06/24 18:54 - History of Present Illness Initial comments: This is a 34-year-old female to the ER with multiple complaints near syncope has main complaint, abdominal pain (Oziel Richard) Patient is a 34-year-old female no significant past medical history presenting today for near syncopal episode. 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 States over the last 4 days she has been more fatigued and sleeping more than normal. Endorses cough productive of yellow sputum and shortness of breath, chills, fevers for the last 2 to 3 days, took 500 mg of Tylenol just prior to arrival here today. Last fever at home was this morning 100.3 degrees. Patient also endorses episodes of nausea and vomiting. Emesis is nonbilious though she does state there has been some dark streaks in her vomit. States last night she thought she may have coughed up "chunks" and there may have been blood but no blood clots. Denies family history of sudden cardiac . Denies melena and hematochezia. Additionally patient endorsed vaginal pain during sex with her boyfriend last night, denies STIs, concern for STIs. (Susan Vaca) - Related Data Home Medications Medication Instructions Recorded Confirmed No Known Home Medications 11/06/24 11/06/24 Allergies Allergy/AdvReac Type Severity Reaction Status Date / Time clindamycin Allergy Anaphylaxis Verified 11/06/24 19:49 Review of Systems ROS Other: All systems not noted in ROS Statement are negative. <Oziel Richard - Last Filed: 11/08/24 01:52> ROS Other: All systems not noted in ROS Statement are negative. <Susan Vcaa - Last Filed: 11/09/24 14:28> ROS Statement: Those systems with pertinent positive or pertinent negative responses have been documented in the HPI. Past Medical History Past Medical History: Asthma Additional Past Medical History / Comment(s): heart murmur History of Any Multi-Drug Resistant Organisms: None Reported Past Surgical History: Adenoidectomy, Appendectomy, Section, Cholecystectomy, Ear Surgery, Tonsillectomy Additional Past Surgical History / Comment(s): ear tubes Past Anesthesia/Blood Transfusion Reactions: No Reported Reaction Past Psychological History: No Psychological Hx Reported Smoking Status: Never smoker Past Alcohol Use History: None Reported Past Drug Use History: None Reported - Past Family History Mother Family Medical History: No Reported History Additional Family Medical History / Comment(s): Multiple sclerosis in the family <Susan - Last Filed: 11/09/24 14:28> General Exam General appearance: alert, in no apparent distress, anxious Head exam: Present: atraumatic, normocephalic, normal inspection Eye exam: Present: normal appearance, PERRL, EOMI. Absent: scleral icterus, conjunctival injection, periorbital swelling ENT exam: Present: normal exam, mucous membranes moist Neck exam: Present: normal inspection. Absent: tenderness, meningismus, lymphadenopathy Respiratory exam: Present: normal lung sounds bilaterally. Absent: respiratory distress, wheezes, rales, rhonchi, stridor Cardiovascular Exam: Present: regular rate, normal rhythm, normal heart sounds. Absent: systolic murmur, diastolic murmur, rubs, gallop, clicks GI/Abdominal exam: Present: soft, normal bowel sounds. Absent: distended, tenderness, guarding, rebound, rigid Extremities exam: Present: normal inspection, full ROM, normal capillary refill. Absent: tenderness, pedal edema, joint swelling, calf tenderness Back exam: Present: normal inspection Neurological exam: Present: alert, oriented X3, CN II-XII intact Psychiatric exam: Present: normal affect, normal mood Skin exam: Present: warm, dry, intact, normal color. Absent: rash <Oziel Richard - Last Filed: 11/08/24 01:52> Limitations: no limitations <Susan Vaca - Last Filed: 11/09/24 14:28> - General Exam Comments Initial Comments: PE: CONSTITUTIONAL: No apparent distress, ill-appearing, nontoxic SKIN: Warm, dry, no jaundice, hives or petechiae EYES: Pupils are equally round, extraocular movements intact without nystagmus, clear conjunctiva, non-icteric sclera HENT: Normocephalic, atraumatic, dry mucus membranes, oropharynx clear without exudates NECK: , Full range of motion, normal appearance PULMONARY: Scant wheeze bilaterally, otherwise no rhonchi, or rales, normal excursion, no accessory muscle use and no stridor CARDIOVASCULAR: Regular rate, rhythm, normal S1 and S2. No appreciated murmurs, rubs or gallops. Strong radial pulses with intact distal perfusion. No lower extremity edema GASTROINTESTINAL: Soft, active bowel sounds throughout, right CVA tenderness, epigastric tenderness palpation, no suprapubic tenderness, non-distended, no palpable masses, no rebound or guarding. No hepatosplenomegaly GENITOURINARY: MUSCULOSKELETAL: Extremities have no gross deformity, no edema, redness, or swelling. No calf swelling NEUROLOGIC:_a/o x 3, GCS 15, normal mentation and speech. Moves all extremities x 4 without motor or sensory deficit PSYCHIATRIC:_normal mood and affect, thought process is clear and linear (Susan Vaca) Course <Oziel Richard - Last Filed: 11/08/24 01:52> Vital Signs 11/06/24 11/06/24 11/06/24 18:48 19:10 19:59 Temperature 99.5 F Pulse Rate 89 88 80 Respiratory 18 18 Rate Blood Pressure 89/56 106/70 O2 Sat by Pulse 96 95 Oximetry 11/06/24 11/06/24 11/06/24 20:06 21:06 23:20 Temperature Pulse Rate 85 86 88 Respiratory 18 18 Rate Blood Pressure 96/65 100/67 O2 Sat by Pulse 96 96 Oximetry 11/07/24 11/07/24 00:48 03:02 Temperature 98.7 F 98.5 F Pulse Rate 84 84 Respiratory 18 18 Rate Blood Pressure 107/68 98/64 O2 Sat by Pulse 97 97 Oximetry - Reevaluation(s) Reevaluation #1: 11/07/24 02:30 Medical records reviewed (Oziel Richard) Reevaluation #2: 11/07/24 02:30 Symptoms improved (Oziel Richard) Reevaluation #3: 11/07/24 02:30 Patient informed of results questions answered Patient feels good for discharge home (Oziel Richard) Reevaluation #4: Differential Abdominal Pain Women: Appendicitis, Cholecystitis, diverticulosis, ischemic bowel, pancreatitis, hepatitis, UTI, gastroenteritis, AAA, incarcerated hernia, bowel obstruction, constipation, inflammatory bowel, hepatitis, peptic ulcer disease, splenic infarction, perforated viscus, vulvitis, ovarian torsion, PID, kidney stone, placenta abruption, this is not meant to be an all-inclusive list Differential Syncope: Valvular disease, hypertrophic cardiomyopathy, pulmonary embolism, tamponade, tachycardia, bradycardia, OH, hypovolemia, hemorrhage, dissection, anemia, intracranial hemorrhage, seizure, hypoglycemia, carbon monoxide poisoning, this is not meant to be an all-inclusive list. (Oziel Richard) EKG Findings - EKG Comments: EKG Findings:: This rhythm, rate 82 beats minute FL interval 150 ms, QRS duration 89 ms QT/QTc 384/423 ms, normal axis, no ST elevations or depressions No STEMI <Susan Vaca - Last Filed: 11/09/24 14:28> Medical Decision Making - Lab Data Result diagrams: 11/06/24 20:23 11/06/24 20:23 - EKG Data -: EKG Interpreted by Ms - Radiology Data Radiology results: report reviewed (CT abdomen pelvis ultrasound transvaginal and chest x-ray are negative for acute disease), image reviewed <Oziel Richard - Last Filed: 11/08/24 01:52> - Lab Data Result diagrams: 11/06/24 20:23 11/06/24 20:23 <Susan Vaca - Last Filed: 11/09/24 14:28> - Medical Decision Making 34 female with multiple nonspecific complaints. Nausea vomiting patient has uncontrolled pain but currently feels well patient has no acute findings: Symptoms are dramatically improved here in the ER will treat symptomatically and can be discharged home (Oziel Richard) Was pt. sent in by a medical professional or institution (, PA, PARTY PLAN SALES UNIT ADVISOR, urgent care, hospital, or halfway...) When possible be specific @ -No Did you speak to anyone other than the patient for history (EMS, parent, family, police, friend...)? What history was obtained from this source @ -No Did you review nursing and triage notes (agree or disagree)? Why? @ -I reviewed nursing and triage notes Were old charts reviewed (outside hosp., previous admission, EMS record, old EKG, old radiological studies, urgent care reports/EKG's, halfway records)? Report findings @ -Medical records reviewed Differential Diagnosis (chest pain, altered mental status, abdominal pain women, abdominal pain men, vaginal bleeding, weakness, fever, dyspnea, syncope, headache, dizziness, GI bleed, back pain, seizure, CVA, palpatations, mental health, musculoskeletal)? Differential diagnoses were intraductal considerations regarding patient's near syncopal episode hypertrophic cardiomyopathy, pulmonary embolism, tamponade, tachycardia, bradycardia, ACS hypovolemia, dehydration anemia, infection this is not meant to be an all-inclusive list. EKG interpreted by me (3pts min.). @ -As above U/S interpreted by me (1pt. min.). @ -None done What testing was considered but not performed or refused? (CT, X-rays, U/S, labs)? Why? @ -None What meds were considered but not given or refused? Why? @ -None Did you discuss the management of the patient with other professionals (professionals i.e. , PA, PARTY PLAN SALES UNIT ADVISOR, lab, RT, psych nurse, social media developer, liner installer, teacher, boat officer, case advocate)? Give summary @ -No Was smoking cessation discussed for >3mins.? @ -No Was critical care preformed (if so, how long)? @ -No Were there social determinants of health that impacted care today? How? (Homelessness, low income, unemployed, alcoholism, drug addiction, transportation, low edu. Level, literacy, decrease access to med. care, group home, rehab)? @ -No Was there de-escalation of care discussed even if they declined (Discuss DNR or withdrawal of care, Hospice)? @ -No What co-morbidities impacted this encounter? (DM, HTN, Smoking, COPD, CAD, Cancer, CVA, ARF, Chemo, Hep., AIDS, mental health diagnosis, sleep apnea, morbid obesity)? @Asthma Was patient admitted / discharged? Hospital course, mention meds given and route, prescriptions, significant lab abnormalities, going to OR and other pertinent info. @Signed out to oncoming physician are pending imaging and reassessment -patient is a 34 y/o female past medical history of asthma presenting today for multiple complaints , near syncope, 3 days nausea, vomiting, cough, body aches, fever, flank pain. Also noted vaginal pain with sex last night with her boyfriend. No hx prior STIs or concerns for STIs. Unsure if she could be . Oral temp on arrival 99.5, BP 83/56 however about 20 minutes later when I rechecked her blood pressure personally with an appropriately sized cuff, blood pressure increased to 106/70 without additional intervention. No tachycardia or hypoxia noted. Patient is ill-appearing though nontoxic, dry mucous membranes, awake and alert, scant wheeze in the bilateral lung mendosa, right CVA tenderness, abdomen predominantly TTP in the epigastrium and along left side of the abdomen. No LQ or suprapubic TTP. Given patient's multiple complaints will need to case a broad net, including EKG, d dimer, troponin, viral testing, CT abdomen/pelvis, CBC, CMP, lipase, UA, hcg. Toradol ordered for pain control. Pt agreeable with POC. K 3.1, ordered replacement. Mild leukocytosis WBC count 18.1., Labs otherwise overall reassuring. Patient signed out to oncoming physician pending CT abdomen/pelvis and D-dimer. Undiagnosed new problem with uncertain prognosis? @ -No Drug Therapy requiring intensive monitoring for toxicity (Heparin, Nitro, Insulin, Cardizem)? @ -No Were any procedures done? @ -No Diagnosis/symptom? @Near-syncope,, cough, malaise, abdominal pain Acute, or Chronic, or Acute on Chronic? @ -Acute Uncomplicated (without systemic symptoms) or Complicated (systemic symptoms)? @Complicated Side effects of treatment? @ -No Exacerbation, Progression, or Severe Exacerbation? @ -No (Susan Vaca) - Lab Data Lab Results 11/06/24 11/06/24 11/06/24 Range/Units 19:20 20:23 20:23 WBC 18.1 H (3.8-10.6) k/uL RBC 4.46 (3.80-5.40) m/uL Hgb 14.2 (11.4-16.0) gm/dL Hct 42.1 (34.0-46.0) % MCV 94.5 (80.0-100.0) fL MCH 31.8 (25.0-35.0) pg MCHC 33.7 (31.0-37.0) g/dL RDW 12.1 (11.5-15.5) % Plt Count 185 (150-450) k/uL MPV 8.0 Neutrophils % 88 % Lymphocytes % 5 % Monocytes % 6 % Eosinophils % 0 % Basophils % 0 % Neutrophils # 15.9 H (1.3-7.7) k/uL Lymphocytes # 0.9 L (1.0-4.8) k/uL Monocytes # 1.0 (0-1.0) k/uL Eosinophils # 0.0 (0-0.7) k/uL Basophils # 0.0 (0-0.2) k/uL PT (10.0-12.5) sec INR (<1.2) APTT (22.0-30.0) sec D-Dimer (<0.60) mg/L FEU Sodium 139 (137-145) mmol/L Potassium 3.1 L (3.5-5.1) mmol/L Chloride 101 (98-107) mmol/L Carbon Dioxide 27 (22-30) mmol/L Anion Gap 11 mmol/L BUN 6 L (7-17) mg/dL Creatinine 0.57 (0.52-1.04) mg/dL Est GFR (CKD-EPI)AfAm >90 (>60 ml/min/1.73 sqM) Est GFR (CKD-EPI)NonAf >90 (>60 ml/min/1.73 sqM) Glucose 113 H (74-99) mg/dL Plasma Lactic Acid Get (0.7-2.0) mmol/L Calcium 9.0 (8.4-10.2) mg/dL Total Bilirubin 0.8 (0.2-1.3) mg/dL AST 21 (14-36) U/L ALT 14 (4-34) U/L Alkaline Phosphatase 98 (38-126) U/L Troponin I (0.000-0.034) ng/mL Total Protein 7.1 (6.3-8.2) g/dL Albumin 4.3 (3.5-5.0) g/dL Amylase 44 (30-110) U/L Lipase 31 (23-300) U/L HCG, Quant <2.4 mIU/mL Urine Color Yellow Urine Appearance Clear (Clear) Urine pH 7.5 (5.0-8.0) Ur Specific [place] 1.020 (1.001-1.035) Urine Protein Trace H (Negative) Urine Glucose (UA) Negative (Negative) Urine Ketones Trace H (Negative) Urine Blood Small H (Negative) Urine Nitrite Negative (Negative) Urine Bilirubin Negative (Negative) Urine Urobilinogen 4.0 (<2.0) mg/dL Ur Leukocyte Esterase Negative (Negative) Urine RBC 6 H (0-5) /hpf Urine WBC 6 H (0-5) /hpf Ur Squamous Epith Cells 4 (0-4) /hpf Amorphous Sediment Rare H (None) /hpf Urine Bacteria Occasional H (None) /hpf Urine Mucus Few H (None) /hpf Influenza Type A (PCR) (Not Detectd) Influenza Type B (PCR) (Not Detectd) RSV (PCR) (Not Detectd) SARS-CoV-2 (PCR) (Not Detectd) 11/06/24 11/06/24 11/06/24 Range/Units 20:23 20:23 20:23 WBC (3.8-10.6) k/uL RBC (3.80-5.40) m/uL Hgb (11.4-16.0) gm/dL Hct (34.0-46.0) % MCV (80.0-100.0) fL MCH (25.0-35.0) pg MCHC (31.0-37.0) g/dL RDW (11.5-15.5) % Plt Count (150-450) k/uL MPV Neutrophils % % Lymphocytes % % Monocytes % % Eosinophils % % Basophils % % Neutrophils # (1.3-7.7) k/uL Lymphocytes # (1.0-4.8) k/uL Monocytes # (0-1.0) k/uL Eosinophils # (0-0.7) k/uL Basophils # (0-0.2) k/uL PT 10.8 (10.0-12.5) sec INR 1.0 (<1.2) APTT 24.4 (22.0-30.0) sec D-Dimer (<0.60) mg/L FEU Sodium (137-145) mmol/L Potassium (3.5-5.1) mmol/L Chloride (98-107) mmol/L Carbon Dioxide (22-30) mmol/L Anion Gap mmol/L BUN (7-17) mg/dL Creatinine (0.52-1.04) mg/dL Est GFR (CKD-EPI)AfAm (>60 ml/min/1.73 sqM) Est GFR (CKD-EPI)NonAf (>60 ml/min/1.73 sqM) Glucose (74-99) mg/dL Plasma Lactic Acid Get 1.0 (0.7-2.0) mmol/L Calcium (8.4-10.2) mg/dL Total Bilirubin (0.2-1.3) mg/dL AST (14-36) U/L ALT (4-34) U/L Alkaline Phosphatase (38-126) U/L Troponin I <0.012 (0.000-0.034) ng/mL Total Protein (6.3-8.2) g/dL Albumin (3.5-5.0) g/dL Amylase (30-110) U/L Lipase (23-300) U/L HCG, Quant mIU/mL Urine Color Urine Appearance (Clear) Urine pH (5.0-8.0) Ur Specific [place] (1.001-1.035) Urine Protein (Negative) Urine Glucose (UA) (Negative) Urine Ketones (Negative) Urine Blood (Negative) Urine Nitrite (Negative) Urine Bilirubin (Negative) Urine Urobilinogen (<2.0) mg/dL Ur Leukocyte Esterase (Negative) Urine RBC (0-5) /hpf Urine WBC (0-5) /hpf Ur Squamous Epith Cells (0-4) /hpf Amorphous Sediment (None) /hpf Urine Bacteria (None) /hpf Urine Mucus (None) /hpf Influenza Type A (PCR) (Not Detectd) Influenza Type B (PCR) (Not Detectd) RSV (PCR) (Not Detectd) SARS-CoV-2 (PCR) (Not Detectd) 11/06/24 11/06/24 Range/Units 20:23 20:24 WBC (3.8-10.6) k/uL RBC (3.80-5.40) m/uL Hgb (11.4-16.0) gm/dL Hct (34.0-46.0) % MCV (80.0-100.0) fL MCH (25.0-35.0) pg MCHC (31.0-37.0) g/dL RDW (11.5-15.5) % Plt Count (150-450) k/uL MPV Neutrophils % % Lymphocytes % % Monocytes % % Eosinophils % % Basophils % % Neutrophils # (1.3-7.7) k/uL Lymphocytes # (1.0-4.8) k/uL Monocytes # (0-1.0) k/uL Eosinophils # (0-0.7) k/uL Basophils # (0-0.2) k/uL PT (10.0-12.5) sec INR (<1.2) APTT (22.0-30.0) sec D-Dimer 0.49 (<0.60) mg/L FEU Sodium (137-145) mmol/L Potassium (3.5-5.1) mmol/L Chloride (98-107) mmol/L Carbon Dioxide (22-30) mmol/L Anion Gap mmol/L BUN (7-17) mg/dL Creatinine (0.52-1.04) mg/dL Est GFR (CKD-EPI)AfAm (>60 ml/min/1.73 sqM) Est GFR (CKD-EPI)NonAf (>60 ml/min/1.73 sqM) Glucose (74-99) mg/dL Plasma Lactic Acid Get (0.7-2.0) mmol/L Calcium (8.4-10.2) mg/dL Total Bilirubin (0.2-1.3) mg/dL AST (14-36) U/L ALT (4-34) U/L Alkaline Phosphatase (38-126) U/L Troponin I (0.000-0.034) ng/mL Total Protein (6.3-8.2) g/dL Albumin (3.5-5.0) g/dL Amylase (30-110) U/L Lipase (23-300) U/L HCG, Quant mIU/mL Urine Color Urine Appearance (Clear) Urine pH (5.0-8.0) Ur Specific [place] (1.001-1.035) Urine Protein (Negative) Urine Glucose (UA) (Negative) Urine Ketones (Negative) Urine Blood (Negative) Urine Nitrite (Negative) Urine Bilirubin (Negative) Urine Urobilinogen (<2.0) mg/dL Ur Leukocyte Esterase (Negative) Urine RBC (0-5) /hpf Urine WBC (0-5) /hpf Ur Squamous Epith Cells (0-4) /hpf Amorphous Sediment (None) /hpf Urine Bacteria (None) /hpf Urine Mucus (None) /hpf Influenza Type A (PCR) Not Detected (Not Detectd) Influenza Type B (PCR) Not Detected (Not Detectd) RSV (PCR) Not Detected (Not Detectd) SARS-CoV-2 (PCR) Not Detected (Not Detectd) Disposition Is patient prescribed a controlled substance at d/c from ED?: No Time of Disposition: 02:30 <Oziel Richard - Last Filed: 11/08/24 01:52> <Susan Vaca - Last Filed: 11/09/24 14:28> Clinical Impression: Abdominal pain, Near syncope Disposition: HOME SELF-CARE Condition: Fair Instructions (If sedation given, give patient instructions): Abdominal Pain (ED), Near Syncope (ED) Referrals: García Fisher Jr, [Primary Care Provider] - 1-2 days
[2024-11-06 20:54] LABS: Basophils % (A) 0 %; Eosinophils % (A) 0 %; HCT 42.1 % (34.0-46.0); HGB 14.2 gm/dL (11.4-16.0); Lymphocytes # (A) 0.9 k/uL (1.0-4.8); Lymphocytes % (A) 5 %; MCH 31.8 pg (25.0-35.0); MCHC 33.7 g/dL (31.0-37.0); MCV 94.5 fL (80.0-100.0); Monocytes % (A) 6 %; Neutrophils # (A) 15.9 k/uL (1.3-7.7); Neutrophils % (A) 88 %; Platelet Count 185 k/uL (150-450); RBC 4.46 m/uL (3.80-5.40); RDW 12.1 % (11.5-15.5); WBC 18.1 k/uL (3.8-10.6)
[2024-11-06] MEDS: ONDANSETRON 4 MG/2 ML VIAL IVP STA (20:59)
[2024-11-06] MEDS: ACETAMINOPHEN TAB 325 MG TAB PO STA (21:00)
[2024-11-06] MEDS: KETOROLAC 15 MG/ML 1 ML VIAL IVP STA (21:01)
[2024-11-06] MEDS: SODIUM CHLORIDE 0.9% 1,000 ML IV STA (21:03)
[2024-11-06 21:10] LABS: ALT 14 U/L (4-34); AST 21 U/L (14-36); African American GFR (CKD) >90 (>60 ml/min/1.73 sqM); Albumin 4.3 g/dL (3.5-5.0); Alkaline Phosphatase 98 U/L (38-126); Amylase 44 U/L (30-110); Anion Gap 11 mmol/L; Blood Urea Nitrogen 6 mg/dL (7-17); Carbon Dioxide 27 mmol/L (22-30); Chloride 101 mmol/L (98-107); Glucose 113 mg/dL (74-99); Lipase 31 U/L (23-300); Non-African American GFR(CKD) >90 (>60 ml/min/1.73 sqM); Potassium 3.1 mmol/L (3.5-5.1); Sodium 139 mmol/L (137-145); Total Bilirubin 0.8 mg/dL (0.2-1.3); Total Protein 7.1 g/dL (6.3-8.2)
[2024-11-06 21:26] LABS: HCG,Quantitative Serum <2.4 mIU/mL; Partial Thromboplastin Time 24.4 sec (22.0-30.0); Prothrombin Time 10.8 sec (10.0-12.5)
[2024-11-06 21:41] LABS: Influenza A Not Detected (Not Detectd); Influenza B Not Detected (Not Detectd); RSV Not Detected (Not Detectd)
[2024-11-06] MEDS: POTASSIUM BICARBONATE/CIT AC 20 MEQ TABLET.EFF PO ONE (22:11)
--- NOTE | 2024-11-06 23:38 | CT ---
EXAM: CT Abdomen and Pelvis With Intravenous Contrast CLINICAL HISTORY: ITS.REASON CT Reason: Right flank, epigastric abdominal pain TECHNIQUE: Axial computed tomography images of the abdomen and pelvis with intravenous contrast. CTDI is 8.1 mGy and DLP is 337.1 mGy-cm. This CT exam was performed using one or more of the following dose reduction techniques: automated exposure control, adjustment of the mA and/or kV according to patient size, and/or use of iterative reconstruction technique. COMPARISON: 07/09/2021. FINDINGS: Lung bases: Patchy airspace disease is noted at the lung bases possibly in the base of multifocal pneumonia. Best seen on series 201 image 3, there is a 1.7 x 1.3 cm noncalcified infrahilar nodule. Neoplasm cannot be excluded. ABDOMEN: Liver: Fatty liver. Gallbladder and bile ducts: Status post cholecystectomy. No ductal dilation. Pancreas: See below. Spleen: Spleen enhances uniformly. Adrenals: The adrenal glands, the head, body, tail of the pancreas are unremarkable. Kidneys and ureters: On delayed imaging, the visualized renal collecting systems are unremarkable. No renal calculus or hydronephrosis. Stomach and bowel: Best seen on series 202 image 39 and series 2 0 image 38, there is an abnormal loop of small bowel within the left epigastrium with wall thickening. Differential etiologies include inflammatory or infectious etiologies. Ischemic etiology cannot be entirely excluded but is felt to be less likely possibility. Additional fluid-filled loops of small bowel are noted. Overall, findings are most suggestive of enteritis. Clinical correlation however is necessary as the findings are nonspecific. Moderate quantity of ingested material in the stomach. Moderate quantity of stool throughout the colon. No obstruction. PELVIS: Appendix: Appendix is seen on axial image 46 and is unremarkable. Bladder: Unremarkable. No mass. Reproductive: A 3.4 x 2 point is under complex left ovarian cyst is noted. ABDOMEN and PELVIS: Intraperitoneal space: Moderate free fluid within the posterior cul-de- sac. No free air. Bones/joints: No acute fracture. No dislocation. Soft tissues: Unremarkable. Vasculature: Portal vein is patent. Flow is noted within the celiac, SMA, the renal arteries, and VANGIE. No abdominal aortic aneurysm. Lymph nodes: Unremarkable. No retroperitoneal lymphadenopathy. IMPRESSION: 1. Abnormal thick-walled loops of small bowel within the left epigastrium differential etiologies which includes inflammatory or infectious etiologies. Ischemic etiology though felt to be less likely possibility cannot be entirely excluded and clinical correlation is advised. 2. Indeterminate consolidative changes and left infrahilar nodule at the lung bases. Dedicated CT imaging of the chest is advised. There is a high degree of concern, PET imaging should be performed. 3. Fatty liver. 4. Status post cholecystectomy. 5. No renal calculus or hydronephrosis. 6. Free fluid within the pelvis. 7. Complex left ovarian cyst. Transvaginal imaging of the pelvis is advised for further assessment of the left ovary.
[2024-11-07 00:50] VITALS: PULSE 84
[2024-11-07] MEDS: ONDANSETRON 4 MG/2 ML VIAL IVP STA (00:53)
[2024-11-07] MEDS: MORPHINE SULFATE 4 MG/ML SYRINGE IVP STA (00:53)
--- NOTE | 2024-11-07 00:57 | XR ---
EXAM: XR Chest, 2 Views CLINICAL HISTORY: ITS.REASON XR Reason: cough TECHNIQUE: Frontal and lateral views of the chest. COMPARISON: No previous studies. FINDINGS: Lungs: Airway is unremarkable. No consolidative changes. Pleural space: Unremarkable. No pneumothorax. No pleural effusions. Heart: Heart is normal in size. No cardiomegaly. Mediastinum: Unremarkable. Normal mediastinal contour. Bones/joints: Unremarkable. No acute fracture. Normal alignment of the thoracic spine. Soft tissues: Soft tissues are unremarkable. IMPRESSION: No consolidative changes or pleural effusions.
--- NOTE | 2024-11-07 02:27 | US ---
EXAM: US Pelvis Transvaginal CLINICAL HISTORY: ITS.REASON US Reason: cyst torsion TECHNIQUE: Real-time transvaginal pelvic ultrasound with image documentation. Transvaginal imaging was used for better evaluation of the endometrium and adnexa. COMPARISON: 11/06/2024. FINDINGS: Uterus/cervix: The uterus measures 8.2 x 5.2 x 3.1 cm. Endometrial stripe measures 0.3 cm. A 1.5 x 1 x 0.6 cm fluid collection is noted within the endocervical canal of uncertain etiology and significance. No myometrial mass. Right ovary: A 1.2 x 1.2 x 1.2 several complex right ovarian cyst is noted. Right ovary measures 2.7 x 2.0 x 1.8 cm. Normal blood flow. Left ovary: A 1.4 x 0.8 x 0.9 several complex left ovarian cyst is noted. Left ovary measures 3.9 x 2.2 x 2.3 cm. Free fluid: Moderate simple free fluid within the posterior cul-de-sac extending to the left adnexa. Bladder: Empty bladder which cannot be evaluated with this probe. IMPRESSION: 1. Moderate free fluid extending to the left adnexa. 2. Flow to both ovaries noted. 3. Fluid collection within the endocervical canal of uncertain etiology. At the very least, follow-up imaging in 2-4 weeks is advised for reassessment.
[2024-11-07 03:03] VITALS: BP 98/64; TEMP 98.5
== END 2024-11-07 03:44 | disposition home or self-care (01) ==
LOC: EC 18:24
DX: R55 Syncope and collapse (principal); R10.9 Unspecified abdominal pain; J45.909 Unspecified asthma, uncomplicated; Z88.8 Allergy status to other drugs, medicaments and biological substances; Z11.52 Encounter for screening for COVID-19
CPT/HCPCS: 36415; 94640; 93005; 85379; 80053; 82150; 83605; 83690; 84484; 85025; 85610; 85730; 81001; 84702; 87636; 71046; 93975; 76830; 74177; 99285; 96374; 96375 ×2; 96361; 96376; J2270; J2405 ×2; J1885; Q9967

== ENCOUNTER 2024-11-11 13:03 | Emergency (ER) | payer OTHER ==
[2024-11-11 13:20] VITALS: BP 98/63; PULSE 74; RESP 16; TEMP 99.1
== END 2024-11-11 13:33 | disposition left against medical advice (07) ==
LOC: EC 13:03
DX: Z53.21 Procedure and treatment not carried out due to patient leaving prior to being seen by health care provider (principal)
CPT/HCPCS: 93005; 99499

== ENCOUNTER → 2024-11-11 | Outpatient (CLI) | payer OTHER ==
[2024-11-11 19:23] LABS: ALT 17 U/L (8-44); AST 21 U/L (13-35); Albumin/Globulin Ratio 1.25 Ratio (1.60-3.17); Alkaline Phosphatase 149 U/L (41-126); Blood Urea Nitrogen 7.5 mg/dL (9.0-27.0); Calcium 9.3 mg/dL (8.7-10.3); Chloride 100 mmol/L (96-109); Globulin 3.2 g/dL (1.6-3.3); Glucose 98 mg/dL (70-110); Potassium 3.7 mmol/L (3.5-5.5); Sodium 141 mmol/L (135-145); Total Bilirubin 0.6 mg/dL (0.3-1.2); Total Protein 7.2 g/dL (6.2-8.2)
[2024-11-11 19:44] LABS: HCT 44.3 % (37.2-46.3); MCH 30.6 pg (27.0-32.0); MCHC 31.6 g/dL (32.0-37.0); MCV 96.9 FL (80.0-97.0); Mean Platelet Volume 10.2 FL (9.5-12.2); NRBC Per 100 WBC 0 X 10*3/uL (0.00-0.01); Platelet Count 473 X 10*3/uL (140-440); RBC 4.57 X 10*6/uL (4.10-5.20); RDW 12.2 % (11.5-14.5); WBC 20.23 X 10*3/uL (4.50-10.00)
[2024-11-11 20:17] LABS: Basophils # (A) 0.09 X 10*3/uL (0.00-0.10); Basophils % (A) 0.4 %; Eosinophils # (A) 0.02 X 10*3/uL (0.04-0.35); Eosinophils % (A) 0.1 %; Lymphocytes % (A) 6.9 %; Monocytes # (A) 1.78 X 10*3/uL (0.20-1.00); Monocytes % (A) 8.8 %; Neutrophils # (A) 16.79 X 10*3/uL (1.80-7.70); Neutrophils % (A) 83.1 %; RBC Morphology Normal (Normal)
== END | disposition home or self-care (01) ==
LOC: LABWHC1 12:45
PROVIDERS: ATTEND Family Medicine
DX: J18.9 Pneumonia, unspecified organism (principal); E87.6 Hypokalemia
CPT/HCPCS: 36415; 80053; 85025

== ENCOUNTER → 2024-11-15 | Outpatient (CLI) | payer OTHER ==
--- NOTE | 2024-11-15 09:19 | CT ---
EXAMINATION TYPE: CT chest wo/w con DATE OF EXAM: 11/15/2024 COMPARISON: CT abdomen pelvis 11/06/2024 CLINICAL INDICATION: Female, 34 years old with history of R06.02 SHORTNESS OF BREATH; PHH, Abn CT Abd pelvis, lung nodules TECHNIQUE: CT scan of the chest is performed without and with IV Contrast, patient injected with 100 mL of . AK P Images are created on CT scanner and reviewed. 3D reconstructed images are created on an [employer] workstation and reviewed. CT DLP: 215.2 mGycm Automated exposure control for dose reduction was used. FINDINGS: LUNGS: There are bilateral areas of subsegmental consolidation which could be in the basis of atelect asis or scarring. A punctate tree-in-bud nodules in the right upper lobe image 26 series 4 2 small to characterize. Groundglass nodule adjacent to the minor fissure right upper lobe image 24 series 14 2 small to characterize but likely benign. MEDIASTINUM: The heart is enlarged. No definite pathologic adenopathy. Aorta of normal caliber. No si zable pleural or pericardial effusion. OTHER: Postcholecystectomy changes are seen. Liver somewhat reduced attenuation correlate for underl anthony hepatocellular disease or hepatic steatosis. IMPRESSION: 1. Bilateral areas of consolidation favors scarring\atelectasis favored over pneumonia. Correlate cli nically. Recommend follow-up to resolution with short-term follow-up to exclude other etiologies incl uding neoplasm which are felt less likely. 2. Sub-5 mm pulmonary nodules as discussed above to small to characterize but have a benign appearanc e. A tree-in-bud pattern seen within the right lung with slightly coarsened interstitium likely a seq uela of infectious or inflammatory etiology. Follow-up recommendations for incidental pulmonary nodules are per [employer] or [employer]. [facility], , 11/15/2024 9:17 AM
== END | disposition home or self-care (01) ==
LOC: RADCTMAIN 07:47
PROVIDERS: ATTEND Family Medicine
DX: J98.11 Atelectasis (principal); R06.02 Shortness of breath; R91.8 Other nonspecific abnormal finding of lung field
CPT/HCPCS: 71270; Q9967